=== PATIENT | male | born 1940 | race Caucasian/White ===

== ENCOUNTER 2020-07-17 08:22 | Outpatient (CLI) | payer MEDICARE, SELFPAY ==
--- NOTE | ~2020-07-17 | US_ITS ---
EXAMINATION: US abdomen complete DATE: 07/17/2020 09:24 INDICATION: Intra-abdominal and pelvic swelling. TECHNIQUE: Multiple grayscale and Doppler ultrasound images of the abdomen were obtained. COMPARISON: None FINDINGS: The pancreas is obscured by bowel gas. The liver is normal without focal lesion. There is n ormal flow in main portal vein. The gallbladder is normal in size and contains sludge. No gallstones. Gallbladder wall thickening is noted. The common duct is normal and measures 5 mm. The spleen is nor mal in size. The kidneys are normal in size. There is a 6.9 cm fusiform abdominal aortic aneurysm. Th e inferior vena cava is normal. IMPRESSION: 1. 6.9 cm fusiform abdominal aortic aneurysm. Surgical consultation is recommended. I called this res ult to Dr. Cook on 07/17/20 at 11:48 AM. 2. Gallbladder wall thickening, which may be seen with interstitial edema, chronic liver disease, or chronic cholecystitis. Reviewed, dictated and finalized at location A. IMPRESSION: 1. 6.9 cm fusiform abdominal aortic aneurysm. Surgical consultation is recommen ded. I called this result to Dr. Cook on 07/17/20 at 11:48 AM. 2. 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
== END 2020-07-17 08:23 | disposition home or self-care (01) ==
PROVIDERS: PCP Family Medicine; Visit Provider Family Medicine
DX: R19.00 Intra-abdominal and pelvic swelling, mass and lump, unspecified site (principal); I71.4 Abdominal aortic aneurysm, without rupture
CPT/HCPCS: 76700

== ENCOUNTER 2021-09-25 10:35 | Outpatient (CLI) | payer MEDICARE, SELFPAY ==
--- NOTE | ~2021-09-25 | US_ITS ---
EXAMINATION: US renal BI DATE: 09/25/2021 11:04 INDICATION: Stage III B chronic kidney disease TECHNIQUE: Multiple ultrasound grayscale images of the kidneys were obtained. COMPARISON: 07/17/2020 FINDINGS: The right kidney measures 9.3 x 3.6 x 3.8 cm. The left kidney measures 10.4 x 5.7 x 5.7 cm. The kidne ys demonstrate normal echogenicity. There is no hydronephrosis in either kidney. No stones identifie d. The bladder is normal. Small amount of perihepatic ascites. IMPRESSION: 1. Normal kidneys without hydronephrosis. 2. Small amount of perihepatic ascites. Reviewed, dictated and finalized at location B. 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
== END 2021-09-25 10:36 | disposition home or self-care (01) ==
PROVIDERS: PCP Family Medicine; Visit Provider Internal Medicine Nephrology
DX: N18.32 Chronic kidney disease, stage 3b (principal)
CPT/HCPCS: 76775

== ENCOUNTER 2021-12-16 08:48 | Outpatient (CLI) | payer MEDICARE, SELFPAY ==
--- NOTE | ~2021-12-16 | CT_ITS ---
EXAMINATION:CT diagnostic chest wo con DATE: 12/16/2021 09:05 INDICATION: Solitary pulmonary nodule. TECHNIQUE: Computed tomography (CT) of the chest was performed without intravenous contrast. Automate d exposure control and iterative reconstruction technique were employed. The dose-length product (DLP ) was 148.37 mGy-cm. COMPARISON: None. FINDINGS: There is severe emphysema. There is a 5 mm nodule in right upper lobe. There is a 6 mm nodu le in right lower lobe. There is a 6 mm nodule in right lower lobe. There is a 3 mm nodule in right l ower lobe. There is a 4 mm nodule in lingula. There is a 2 mm nodule in left lower lobe. A calcified left lower lobe nodule and calcified left hilar lymph nodes are consistent with old granulomatous dis ease. No pleural effusion. Cardiomegaly is noted. There are coronary artery calcifications. No perica rdial effusion. There is a 10 x 19 mm mediastinal lymph node, likely reactive. Partially visualized i s a stent graft in abdominal aorta. There is a small volume of perihepatic ascites. There is mild tho racic spondylosis. IMPRESSION: 1. Lung-RADS category 3: Probably benign. Further evaluation is recommended with noncontrast low-dose chest CT in 6 months. 2. Small volume of perihepatic ascites. Reviewed, dictated and finalized at location A. IMPRESSION: 1. Lung-RADS category 3: Probably benign. Further evaluation is recommended wit h noncontrast low-dose chest CT in 6 months. 2. Small volume of perihepatic ascites.
== END 2021-12-16 08:49 | disposition home or self-care (01) ==
LOC: ANHIMG 08:52
PROVIDERS: PCP Family Medicine; Visit Provider Nurse Practitioner Family
DX: R91.1 Solitary pulmonary nodule (principal); R18.8 Other ascites
CPT/HCPCS: 71250

== ENCOUNTER 2022-06-21 08:53 | Outpatient (CLI) | payer MEDICARE, SELFPAY ==
--- NOTE | ~2022-06-21 | CT_ITS ---
EXAMINATION:CT diagnostic chest wo con DATE: 06/21/2022 09:13 INDICATION: Other nonspecific abnormal finding of lung field. Lung nodule. TECHNIQUE: Computed tomography (CT) of the chest was performed without intravenous contrast. Automate d exposure control and iterative reconstruction technique were employed. The dose-length product (DLP ) was 99.73 mGy-cm. COMPARISON: Chest CT 12/16/2021 FINDINGS: There is severe emphysema. In the right middle lobe, there is a new 6 mm nodule. There is a stable 4 mm nodule in right upper lobe. There is a stable 3 mm nodule in right lower lobe. There is a stable 7 mm nodule in right lower lobe. There is a stable 6 mm nodule in right lower lobe. There is mild atelectasis in the inferior lungs. A calcified left lung nodule and calcified left hilar lymph nodes are consistent with old granulomatous disease. No pleural effusion. Cardiomegaly is noted. Ther e are coronary artery calcifications. No pericardial effusion. There is stable mild mediastinal lymph adenopathy, likely reactive. There is a small volume of ascites. There is a stent graft in abdominal aorta. There is severe cervical spondylosis and mild thoracic spondylosis. IMPRESSION: 1. New 6 mm pulmonary nodule. Noncontrast low-dose chest CT is recommended in 3 months. 2. Severe emphysema. 3. Small volume of ascites. Reviewed, dictated and finalized at location B.
== END 2022-06-21 08:54 | disposition home or self-care (01) ==
PROVIDERS: PCP Family Medicine; Visit Provider Nurse Practitioner Family
DX: R91.8 Other nonspecific abnormal finding of lung field (principal); J43.9 Emphysema, unspecified; R18.8 Other ascites
CPT/HCPCS: 71250

== ENCOUNTER 2022-09-23 07:55 | Outpatient (CLI) | payer MEDICARE, SELFPAY ==
--- NOTE | ~2022-09-23 | CT_ITS ---
CT Scan of the Chest without Contrast: Clinical Indication: Pulmonary nodules Technique: Contiguous sections were acquired throughout the chest without intravenous contrast. Dose reduction technique was used on this scan by utilizing automated exposure control and iterative recon struction technique. The dose-length product (DLP) was 105.86 mGy-cm. COMPARISON: 06/21/2022 and 12/16/2021 Findings: There is no evidence of any significant mediastinal, hilar or axillary lymphadenopathy. The mediastin al soft tissues appear normal. There is no evidence of pleural or pericardial effusion. Stable 4 mm right upper lobe pulmonary nodule (axial image 45). Stable 5 mm subpleural nodule at the right lower lobe (axial image 93). Stable 3 mm right lower lobe pulmonary nodule (axial image 85). St able 6 mm pleural-based nodular opacity at the right lower lobe posteriorly (axial image 72). Stable calcified left upper and lower lobe granulomas. Moderate emphysema noted. Images through the upper abdomen reveal no abnormalities. Impression: Stable subcentimeter pulmonary nodules, as detailed above. Consider one-year follow-up. Moderate emphysema. Reviewed, dictated and finalized at [facility]. 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 Consider one-year fo llow-up. Moderate emphysema.
== END 2022-09-23 07:56 | disposition home or self-care (01) ==
LOC: ANHIMG 07:58
PROVIDERS: PCP Family Medicine; Visit Provider Physician Assistant
DX: R91.1 Solitary pulmonary nodule (principal); J43.9 Emphysema, unspecified
CPT/HCPCS: 71250

== ENCOUNTER 2023-05-04 09:28 | Outpatient (CLI) | payer MEDICARE, SELFPAY ==
[2023-05-04 11:14] LABS: Basophils Percent Auto 0.1 % (0.2-1.2); Eosinophils Percent Auto 0.1 % (0-4.4); Hematocrit 27.6 % (42.0-52.0); Hemoglobin 9.6 g/dL (14.0-18.0); Immature Granulocyte Percent A 0.8 % (0-0.5); Lymphocytes Absolute Auto 0.53 K/mm3 (0.9-3.2); Lymphocytes Percent Auto 4.3 % (18.3-44.2); Mean Corpuscular HGB Conc 34.8 g/dl (32-36); Mean Corpuscular Hemoglobin 34.8 pg (26-34); Mean Platelet Volume 9.1 fl (7.4-10.4); Monocytes Absolute Auto 1.1 K/mm3 (0.1-0.6); Monocytes Percent Auto 8.8 % (2.6-8.5); Neutrophils Absolute Auto 10.5 K/mm3 (1.3-6.7); Neutrophils Percent Auto 85.9 % (45.5-73.1); Platelet Count Result 215 k/mm3 (150-375); Red Blood Count 2.76 M/mm3 (4.6-6.20); Red Cell Distribution Width 13.5 % (11.5-14.5); White Blood Count 12.2 K/mm3 (4.5-10.0)
[2023-05-04 11:18] LABS: Appearance Urine Clear (Clear); Bacteria Urine None Seen /hpf; Bilirubin Urine Negative (Negative); Blood Urine 2+ (Negative); Color Urine Yellow (Yellow); Glucose Urine UA Negative (Negative); Ketones Urine Negative (Negative); Leukocyte Esterase Ur Negative LEU/UL (Negative); Nitrate Urine Negative (Negative); Non Pathogenic Casts 0-2; Protein Urine Negative (Negative); Specific Grav Ur 1.011 (1.001-1.035); Squamous Epithelial Cell Urine None seen /hpf (Few); Urobilinogen Urine 0.2 mg/dL (<2.0); WBC Urine 0-5 /hpf
[2023-05-04 11:21] LABS: Add Urine Microscopic? YES
[2023-05-04 11:30] LABS: Lactic Acid Reflex 1.1 mmol/L (0.7-2.0)
[2023-05-04 11:40] LABS: NT Pro B Type Natriuretic Pept 21800 pg/mL (19.9-100)
[2023-05-04 11:43] LABS: Parathyroid Intact 47.3 pg/mL (7.5-53.5)
[2023-05-04 12:40] LABS: Alanine Aminotransferase 23 U/L (6-50); Albumin Level 3.3 g/dL (3.5-5.1); Alkaline Phosphatase 92 U/L (38-126); Anion Gap 10 mmol/L (8-16); Aspartate Amino Transferase 32 U/L (17-59); Bilirubin,Total 1.4 mg/dL (0.2-1.3); Blood Urea Nitrogen 31 mg/dL (9-20); Calcium 8.1 mg/dL (8.4-10.2); Carbon Dioxide 27 mmol/L (22-30); Chloride 85 mmol/L (98-107); Estimated Glomerular Filt Rate 48; Glucose 98 mg/dL (65-110); Magnesium 2.2 mg/dL (1.6-2.3); Potassium 3.6 mmol/L (3.4-5.0); Sodium 122 mmol/L (137-145)
== END 2023-05-04 09:29 | disposition home or self-care (01) ==
LOC: ANHGOSHLAB 09:56 → ANHLAB 10:14
PROVIDERS: PCP Family Medicine; Visit Provider Nurse Practitioner Family
DX: R41.0 Disorientation, unspecified (principal); I10 Essential (primary) hypertension
CPT/HCPCS: 36415; 80053; 81001; 83605; 83735; 83880; 83970; 84443; 85025

== ENCOUNTER 2023-05-04 14:10 | Inpatient (IN) | payer MEDICARE, SELFPAY ==
[2023-05-04] VITALS (25 sets, daily range): BP systolic 109–141; BP diastolic 56–69; PULSE 84–106; RESP 18–28; TEMP 36.7–36.9; O2SAT 94–99; BMI 25.4
--- NOTE | ~2023-05-04 | CT_ITS ---
EXAMINATION: CT brain wo con DATE: 05/05/2023 12:56 INDICATION: Confusion. TECHNIQUE: Computed tomography (CT) of the head was performed without intravenous contrast. The mA wa s adjusted according to patient size. Iterative reconstruction technique was employed. The dose-lengt h product was 605.33 mGy-cm. COMPARISON: None FINDINGS: There are scattered areas of low attenuation in the cerebral white matter. There is no intr acranial hemorrhage, acute infarction, or abnormal intracranial mass lesion. The ventricles are laura l in size. The paranasal sinuses are clear. The mastoid air cells are normal. There is cerumen in the external auditory canals. IMPRESSION: 1. Extensive nonspecific cerebral white matter disease, which likely represents chronic small vessel ischemic disease. Reviewed, dictated and finalized at location A.
--- NOTE | ~2023-05-04 | XR_ITS ---
EXAMINATION: XR chest 2V Exam Date/Time: 05/04/2023 15:11 CDT HISTORY: heart failure, WEAKNESS, CHF Comparison: 01/05/2018; CT chest 09/23/2022. RESULT: Lines, tubes, and devices: Aortic stent. Lungs and pleura: Senescent and emphysematous change. Bibasilar scar/atelectasis. Multiple calcified granulomas. Cardiomediastinal silhouette: Stable. Other: No acute osseous or upper abdominal finding. IMPRESSION: No acute cardiopulmonary process. Reviewed, dictated and finalized at location K.
--- NOTE | ~2023-05-04 | US_ITS ---
EXAMINATION: US venous doppler [facility] DATE: 05/04/2023 22:26 INDICATION: edema . TECHNIQUE: Grayscale images without and with compression and Doppler images of the bilateral lower ex tremity veins were obtained. COMPARISON: None FINDINGS: The right common femoral vein, profunda (deep) femoral vein, femoral vein, popliteal vein, peroneal v ein, posterior tibial veins, gastrocnemius vein, and greater saphenous vein are patent. 4.8 x 4.5 x 5 .4 cm circumscribed cystic subcutaneous lesion in the right groin at the junction of the common femor al vein and greater saphenous vein, with internal echoes/septations no internal or peripheral flow. The left common femoral vein, profunda (deep) femoral vein, femoral vein, popliteal vein, peroneal v ein, posterior tibial veins, gastrocnemius vein, and greater saphenous vein are patent. 3.6 x 2.3 x 3 .7 cm circumscribed, cystic, subcutaneous lesion in the left groin at the junction of the proximal an d deep femoral veins, with internal echoes/septations and no internal or peripheral flow. IMPRESSION: Patent bilateral lower extremity veins. No evidence of deep venous thrombosis. 5.4 cm right groin and 3.7 cm left groin subcutaneous cystic collections that may represent resolving hematomas. Correlate with history of recent vascular access or interventional procedures. Reviewed, dictated and finalized at location K. IMPRESSION: Patent bilateral lower extremity veins. No evidence of deep venous thrombosis. 5.4 cm right groin and 3.7 cm left groin subcutaneous cystic collections that m ay represent resolving hematomas. Correlate with history of recent vascular acc ess or interventional procedures.
--- NOTE | 2023-05-04 14:42 | ECG_ITS ---
Measurements Intervals [place] Rate: 88 P: DE: 0 QRS: -85 QRSD: 133 T: 26 QT: 395 QTc: 478 Interpretive Statements ATRIAL FIBRILLATION INTRAVENTRICULAR CONDUCTION DELAY [130+ ms QRS DURATION] NO PREVIOUS ECG AVAILABLE FOR COMPARISON Electronically Signed On 05-04-2023 15:29:16 CDT by Erlin Walker M.D.
--- NOTE | 2023-05-04 14:47 | ED.GENADULT ---
HPI - General Adult General Chief complaint: Recheck/Abnormal Lab/Rx Stated complaint: sent by PCP for evaluation of CHF Time Seen by Provider: 05/04/23 14:16 History of Present Illness HPI narrative: Patient is a 82-year-old male who presents ER for further evaluation of possible CHF. Patient has history of A-fib and is anticoagulated. He also takes Lasix at home. Over the last week he has had increasing confusion and some weakness. reports its been better over the last day. Outpatient labs showed an elevated BNP. Patient is not hypoxic at this time. He is oriented x3 but is poor historian. History obtained from . Related Data Home Medications Medication Instructions Recorded Confirmed glucosamine-chondroitin 250 mg-200 2 tablet PO ONCE 12/24/19 05/04/23 mg tablet (Osteo Bi-Flex) lisinopril 20 mg tablet 20 mg PO DAILY 12/24/19 05/04/23 multivitamin 1 tablet PO DAILY 12/24/19 05/04/23 carvedilol 6.25 mg tablet 6.25 mg PO Q12H 12/04/20 05/04/23 vit C,E,zinc,copper-jdtoa2k 250 1 cap PO DAILY 06/08/21 05/04/23 mg-lutein 5 mg-zeaxanthin 1 mg capsule (Ocuvite Adult 50 Plus) atorvastatin 20 mg tablet 20 mg PO QHS 07/13/21 05/04/23 metolazone 2.5 mg tablet 2.5 mg PO .PRN 01/11/22 05/04/23 furosemide 20 mg tablet 20 mg PO DAILY 07/19/22 05/04/23 apixaban 5 mg tablet (Eliquis) 2.5 mg PO BID 12/06/22 05/04/23 Allergies Allergy/AdvReac Type Severity Reaction Status Date / Time No Known Allergies Allergy Verified 05/04/23 08:33 Review of Systems Review of Systems: All systems reviewed & are unremarkable except as noted in HPI and below Constitutional: Constitutional: Denies chills, Reports fatigue and Denies fever(s) ENT: Denies nasal congestion and Denies sore throat Cardiovascular: Cardiovascular: Denies chest pain, Denies rapid heart rate and Denies radiating jaw, neck or arm pain Respiratory: Respiratory: Denies cough, Denies dyspnea and Denies wheezing Gastrointestinal: Gastrointestinal: Denies abdominal pain, Denies nausea and Denies vomiting [facility] Past Medical History Medical History CAD in [place] artery Chronic atrial fibrillation Chronic systolic congestive heart failure CKD (chronic kidney disease) stage 3, GFR 30-59 ml/min Dyslipidemia, goal LDL below 100 Edema of both lower legs due to peripheral venous insufficiency Essential (primary) hypertension History of cardioversion 04/2016 History of colon polyps PERRY (obstructive sleep apnea) Tonsillectomy planned Surgical History Surgical History History of AAA (abdominal aortic aneurysm) repair (~2019) History of pseudoaneurysm (~05/2022) repaired 05/31/[address] Marino at [facility] of tonsillectomy (~194) 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 Family History Family History Mother Hypertension Father Family history of cardiovascular disease Social History Social History Smoking packs per day: 1.5 Smoking cigarettes per day: 30.0 Years smoked: 15 Smoking pack-years: 22.50 Smoking status: Former smoker Second hand tobacco smoke exposure: No Smoking end date: 09/19/75 Alcohol intake: never Substance use: never Substance use type: does not use Lack of Transportation: No Lack of Food: Never True Current Housing: I Have Housing Difficulty Paying Gas/Electric Bills: No Difficulty Paying for Meds: No Currently Unemployed: No Education: High School Diploma/GED Living arrangements: with family Additional living arrangements comments: Occupation/Education: retired Gender identity (if verbalized by the patient): Male Sexual Orientation (if Verbalized by the Patient): Straight or Heterosexual Agree to blood products: Yes Exam Narrative
[2023-05-04 15:04] LABS: Alveolar/Arterial O2 Gradient 42.8 mmHg; Base Excess ABG 3.8 mEq/l (+/-2.0); Fractional Inspired Oxygen 21 %; HCO3 ABG 26.7 mEq/l (22.0-26.0); Methemoglobin ABG 0.2 %THb (0-1.5); Oxygen Content ABG 13.1 %vol (16.0-22.0); Oxygen Saturation ABG 94.9 % (95.0-100.0); Oxyhemoglobin 91.5 % THb (90.0-100.0); PCO2 ABG 34.1 mmHg (35.0-45.0); PO2 ABG 66.1 mmHg (80.0-100.0); PO2 FiO2 Ratio Arterial Blood 3.15 %; Reduced Hemoglobin 7.3 %THb (0-5.0); Total Hemoglobin 10.1 g/dL (12.0-18.0)
[2023-05-04 15:06] LABS: Site Drawn RIGHT BRACHIAL; pH ABG 7.512 (7.350-7.450)
[2023-05-04] MEDS: FUROSEMIDE INJ 40 MG/4 ML VIAL IV PUSH (17:17)
--- NOTE | 2023-05-04 17:18 | PM.IMHP ---
H&P: HPI History of Present Illness Date/Time: 05/04/23 18:00 Chief Complaint: Confusion. Narrative: This is an 82-year-old male with history of coronary artery disease, chronic atrial fibrillation, systolic and diastolic congestive heart failure, chronic kidney disease stage 3, hypertension, obstructive sleep apnea, and other comorbidities who presented to the emergency department at the direction of his primary care provider for evaluation of confusion. The patient provides the following history; his and daughter provides additional information with the patient's permission. Over the past 1 week or so he has developed confusion of which he is aware; for instance he has been going to the bathroom and forgetting to take his undergarments off. The other night he was wondering around the home in the middle of the night ?not knowing what he was doing. He has been sleeping more than usual and has been more forgetful than usual. It seems to have gotten worse in the last 5 days or so. He was seen by his primary care provider on Tuesday and he was started on empiric antibiotics for possible urinary tract infection however received a call yesterday that his culture came back negative and that he should stop taking the antibiotics. Outpatient labs were ordered today and they were significant for a WBC count of 12.2, hemoglobin 9.6, sodium 122, chloride 85, BUN 31, creatinine 1.40, proBNP [id number]. He was then directed to the emergency department with concerns for possible infection and congestive heart failure. At the time my evaluation he is resting comfortably and has no specific complaints. With further questioning his mentions that his appetite has been poor the last week though she has been trying to encourage him to drink at least 20 to 30 oz of water a day however that has a fight. He denies nausea, vomiting, and diarrhea. He has not noticed a decrease in urine output. He has chronic lower extremity edema which is no worse than usual. He is on furosemide daily and has metolazone if he does have weight gain but his weight has remained stable. No lightheadedness, dizziness, fever, chills, sweats, headache, neck ache, sinus congestion, sore throat, chest or pleuritic pain, cough, shortness of breath, orthopnea, or paroxysmal nocturnal dyspnea. He has not had any recent falls or head trauma. No focal weakness, paresthesias, vertigo, facial droop, or difficulty speaking or swallowing. Review of Systems Review of Systems: Twelve systems were reviewed and are negative except for as per HPI. [facility] Past Medical History Medical History (Updated 05/04/23 @ 22:27 by Gill Granados PA-C) Chronic atrial fibrillation Chronic kidney disease, stage 3 Chronic systolic congestive heart failure EF was 32% in April 2022. Coronary artery disease Dyslipidemia, goal LDL below 100 Edema of both lower legs due to peripheral venous insufficiency Essential (primary) hypertension History of colon polyps Obstructive sleep apnea Tonsillectomy planned Surgical History Surgical History (Updated 05/04/23 @ 22:23 by Gill Granados PA-C) History of abdominal aortic aneurysm repair (2019) History of cardioversion (04/2016) 04/2016 History of pseudoaneurysm (05/2022) repaired 05/31/[address] Marino at [facility] History of tonsillectomy (1944) Status post peripheral artery angioplasty with insertion of stent (10/2020) Left iliac artery. Family History Family History Mother Hypertension Father Family history of cardiovascular disease Social History Social History (Updated 05/04/23 @ 22:24 by Gill Granados PA-C) Social History: Surrogate medical decision maker: Hazel Vázquez, spouse. Code status: Full code. Smoking packs per day: 2 Smoking cigarettes per day: 40.0 Years smoked: 15 Smoking pack-years: 30.00 Smoking status: Former smoker Tobacco type: cigarettes Second hand
--- NOTE | 2023-05-04 18:07 | ADMGEN ---
This patient, Cesar Vázquez, was admitted to 3 [facility] Surg Room 315-01. Patient/family oriented to hospital policies and general routines including ID bracelet, bed and alarms, visiting hours, pain management, procedures, bathroom and other care routines, personal items, smoking policy, room service/diet, and visiting hours. Information on how to activate the Rapid Response Team has been discussed. Patient/Family are encouraged to report perceived risks to care and to ask questions if they do not understand what they are told or what they should do.
[2023-05-04 20:34] LABS: Anion Gap 4 mmol/L (8-16); Blood Urea Nitrogen 33 mg/dL (9-20); Calcium 8.2 mg/dL (8.4-10.2); Carbon Dioxide 29 mmol/L (22-30); Chloride 87 mmol/L (98-107); Estimated CRCL calculation 33 ml/min; Estimated Glomerular Filt Rate 45; Glucose 111 mg/dL (65-110); Potassium 3.4 mmol/L (3.4-5.0); Sodium 120 mmol/L (137-145)
[2023-05-04 23:23] LABS: Creatinine Urine 16.4 mg/dL; Urea Random Urine 147 MG/DL
[2023-05-04 23:33] LABS: Sodium Urine Random 77 meq/L
[2023-05-04] MEDS: SODIUM CHLORIDE 0.9% IV 1,000 ML 100 ML IV CONT (23:33)
[2023-05-05] VITALS (13 sets, daily range): BP systolic 122–130; BP diastolic 64–73; PULSE 64–105; RESP 16–28; TEMP 36.7–37.6; O2SAT 91–99
--- NOTE | 2023-05-05 | ECHO_ITS ---
Patient Info Name: Cesar Vázquez Age: 82 years : 1940 Gender: Male Ht: 68 in Wt: 167 lbs BSA: 1.92 m2 HR: 98 bpm BP: 130 / 73 mmHg Heart Rhythm: Atrial Fibrillation Technical Quality: Good Exam Date: 05/05/2023 2:02 PM Exam Location: [facility] Patient Status: Inpatient Admit Date: 05/04/2023 Staff Ordering Physician: Gill Granados PA-C Senior Rd Engineer: Gislea Brown RDCS Attending Provider: Tyler Gil MD Referring Physician: Darwin CRUM; Exam Type: CA echo doppler color flow Study Info Indications I50.9 - Heart failure, unspecified - AFIB Complete two-dimensional, color flow and Doppler transthoracic echocardiogram is performed. Summary 1. Complete two-dimensional, color flow and Doppler transthoracic echocardiogram is performed. 2. Left and right ventricular enlargement with biventricular systolic dysfunction/low ejection fraction. 3. Severe biatrial enlargement. 4. Aortic valve sclerosis with mild aortic regurgitation. 5. Mild mitral regurgitation. 6. Moderately elevated pulmonary artery pressure. Left Ventricle Left ventricular chamber dimension is moderately enlarged. Left ventricular systolic function is severely reduced, estimated at 20-25%. The left ventricular diastolic function is indeterminate. Right Ventricle Right ventricular chamber dimension is mildly enlarged. Right ventricular systolic function is reduced. Left Atria Left atrial chamber dimension is moderately enlarged. Right Atria Right atrial chamber dimension is severely enlarged. Aortic Valve The aortic valve is trileaflet. There is mild aortic valve sclerosis. There is mild aortic valve regurgitation. Pulmonic Valve The pulmonic valve is normal. Mitral Valve The mitral valve has normal leaflets. There is mild mitral valve regurgitation. Tricuspid Valve The tricuspid valve leaflets are normal. There is mild tricuspid valve regurgitation. Moderate pulmonary hypertension, estimated pulmonary arterial systolic pressure is 59 mmHg. Pericardium/Pleural The pericardium appears normal. Aorta The aortic root size at the sinus of Valsalva is normal. Left Ventricular Outflow Tract Name Value Normal LVOT 2D LVOT Diameter 2.1 cm LVOT Doppler LVOT Peak Gradient 4 mmHg LVOT Mean Gradient 2 mmHg LVOT VTI 16 cm LVOT VTI/AV VTI Ratio 0.7 LVOT Stroke Volume 56 ml LVOT CO 14.9 l/min LVOT CI 7.7 l/min/m2 Pulmonic Valve Name Value Normal PV Doppler PV Peak Gradient 1 mmHg Mitral Valve Name Value Normal MV Doppler --------
[2023-05-05 00:18] LABS: Influenza A QL RT-PCR Negative (Negative); Influenza B QL RT-PCR Negative (Negative); SARS-CoV-2 RNA PCR Negative (Negative)
[2023-05-05 00:57] LABS: Sodium 123 mmol/L (137-145)
[2023-05-05 06:25] LABS: Hemoglobin 9.3 g/dL (14.0-18.0); Mean Corpuscular HGB Conc 34.4 g/dl (32-36); Mean Corpuscular Hemoglobin 34.3 pg (26-34); Mean Corpuscular Volume 99.6 fl (80-100); Mean Platelet Volume 9.2 fl (7.4-10.4); Platelet Count Result 215 k/mm3 (150-375); Red Blood Count 2.71 M/mm3 (4.6-6.20); Red Cell Distribution Width 13.5 % (11.5-14.5); White Blood Count 10.6 K/mm3 (4.5-10.0)
[2023-05-05 06:45] LABS: Alanine Aminotransferase 19 U/L (6-50); Albumin Level 2.9 g/dL (3.5-5.1); Alkaline Phosphatase 81 U/L (38-126); Anion Gap 3 mmol/L (8-16); Aspartate Amino Transferase 28 U/L (17-59); Bilirubin,Total 1.1 mg/dL (0.2-1.3); Blood Urea Nitrogen 30 mg/dL (9-20); Carbon Dioxide 32 mmol/L (22-30); Chloride 88 mmol/L (98-107); Estimated CRCL calculation 33 ml/min; Estimated Glomerular Filt Rate 45; Glucose 97 mg/dL (65-110); Magnesium 2.2 mg/dL (1.6-2.3); Potassium 3.5 mmol/L (3.4-5.0); Sodium 123 mmol/L (137-145)
[2023-05-05] MEDS: APIXABAN 2.5 MG TABLET PO ×2 (09:26→17:15)
[2023-05-05] MEDS: MULTIVITAMINS THERAPEUTIC TAB (*BKC) 1 TABLET PO (09:26)
[2023-05-05] MEDS: OPTI-GEN TAB 1 TABLET PO (09:26)
[2023-05-05] MEDS: lisinopriL 20 MG TABLET PO (09:27)
[2023-05-05] MEDS: carvediloL 6.25 MG TABLET PO ×2 (09:27→20:16)
--- NOTE | 2023-05-05 11:01 | PM.IMPN ---
Progress Note: A&P Assessment and Plan (1) Confusion: Code(s): R41.0 - Disorientation, unspecified Status: Acute Assessment and Plan: Patient presents in confused state. Sodium noted to be 120 which could explain confusion. No focal weakness but will proceed with a CT of the brain. TSH was normal. Will check B12, folate. (2) Hyponatremia: Code(s): E87.1 - Hypo-osmolality and hyponatremia Status: Acute Assessment and Plan: Sodium 120 on admission. Chest x-ray was clear. He did receive Lasix IV x1 in the ED. he was started on IV fluids but this has been stopped. Ap 77 and Ucr 16 with FENa 6. Will check serial sodium levels q.6. Fluid restrict. (3) Chronic combined systolic and diastolic congestive heart failure: Code(s): I50.42 - Chronic combined systolic (congestive) and diastolic (congestive) heart failure Status: Acute Assessment and Plan: Chest x-ray was clear but his BNP was 21.8K. He does have pedal edema noted but this appears to be more chronic and unchanged. Lasix IV once on admission but now lasix held. Follow clinically. (4) Chronic kidney disease, stage 3: Code(s): N18.30 - Chronic kidney disease, stage 3 unspecified Status: Acute Assessment and Plan: Cr 1.5 on admission and with in his baseline. Follow (5) Obstructive sleep apnea: Code(s): G47.33 - Obstructive sleep apnea (adult) (pediatric) Status: Acute Assessment and Plan: NIV ordered. Patient tolerating autoPAP weill. Continue the same (6) Chronic atrial fibrillation: Code(s): I48.20 - Chronic atrial fibrillation, unspecified Status: Chronic Assessment and Plan: EKG showing AFib. Rate controlled. Continue Coreg. Contine Eliquis. Subjective Date/time seen: 05/05/23 11:01 Interval history: 82yo male with CKD, AFib, CHF, CAD and HTN here for confusion. Feeling better. No CP. Feels SOB but this is chronic and no chnage. Eating okay. No cough. No n/v. Has pedal edema and family in the room feels this is better. Exam Narrative: AF 98.1 130/73 66 18 99% Gen - NARD sititng up in chair Chest - few bibasilar crackles o/w clear CV - irregularly irregular. Tele showing AFib with occasional flutter waves Abd - Soft, NT/ND, Positive BS Ext - 1+ pedal edema Neuro - Alert and oriented x 4 (except the name of the hospital). Nonfocal exam. Psych - Nml mood and affect Skin - Warm and dry Objective Data Vital Signs Vital Signs: Vital Signs - 24 hr 05/04/23 14:19 05/04/23 14:21 05/04/23 14:30 Temperature 98.4 F Pulse Rate 103 H 106 H 101 H Respiratory Rate 20 24 H 24 H Blood Pressure 111/56 L Pulse Oximetry 97 99 Oxygen Delivery Room Air 05/04/23 14:45 05/04/23 14:46 05/04/23 15:02 Temperature Pulse Rate 102 H 101 H 91 Respiratory Rate 18 20 20 Blood Pressure 109/57 L Pulse Oximetry 99 98 97 Oxygen Delivery 05/04/23 15:43 05/04/23 15:48 05/04/23 16:12 Temperature Pulse Rate 97 94 93 Respiratory Rate 18 22 H 22 H Blood Pressure Pulse Oximetry 95 Oxygen Delivery 05/04/23 16:24 05/04/23 16:31 05/04/23 16:32 Temperature Pulse Rate 87 84 93 Respiratory Rate 18 20 18 Blood Pressure 138/69 Pulse Oximetry 95 97 94 Oxygen Delivery 05/04/23 16:45 05/04/23 16:46 05/04/23 17:03 Temperature Pulse Rate 85 86 93 Respiratory Rate 19 19 19 Blood Pressure 134/63 Pulse Oximetry 95 95 Oxygen Delivery 05/04/23 17:15 05/04/23 17:16 05/04/23 17:17 Temperature Pulse Rate 101 H 97 101 H Respiratory Rate 21 H 19 19 Blood Pressure 141/69 H Pulse Oximetry Oxygen Delivery 05/04/23 17:36 05/04/23 17:45 05/04/23 17:46 Temperature Pulse Rate 102 H 98 101 H Respiratory Rate 28 H 22 H 21 H Blood Pressure 131/66 Pulse Oximetry Oxygen Delivery 05/04/23 19:45 05/04/23 22:00 05/05/23 00:00 Temperature 98.0 F Pu
[2023-05-05 12:20] LABS: Creatine Kinase 25 U/L (55-170); Sodium 126 mmol/L (137-145)
[2023-05-05 13:31] LABS: Folic Acid > 20.0 ng/mL (2.76->20)
[2023-05-05 18:28] LABS: Sodium 118 mmol/L (137-145)
[2023-05-05 18:58] LABS: Sodium 125 mmol/L (137-145)
[2023-05-05] MEDS: ATORVASTATIN 20 MG TABLET PO (20:17)
[2023-05-06] VITALS (14 sets, daily range): BP systolic 116–132; BP diastolic 58–75; PULSE 69–107; RESP 20–22; TEMP 36.2–37.3; O2SAT 91–95
[2023-05-06 00:41] LABS: Sodium 123 mmol/L (137-145)
[2023-05-06 06:38] LABS: Basophils Percent Auto 0.3 % (0.2-1.2); Eosinophils Absolute Auto 0.1 K/mm3 (0-0.3); Eosinophils Percent Auto 0.6 % (0-4.4); Hematocrit 26.4 % (42.0-52.0); Hemoglobin 8.9 g/dL (14.0-18.0); Immature Granulocyte Absolute 0.09 K/mm3 (0.00-0.031); Immature Granulocyte Percent A 0.8 % (0-0.5); Lymphocytes Absolute Auto 0.78 K/mm3 (0.9-3.2); Lymphocytes Percent Auto 7.2 % (18.3-44.2); Mean Corpuscular HGB Conc 33.7 g/dl (32-36); Mean Corpuscular Hemoglobin 34.2 pg (26-34); Mean Corpuscular Volume 101.5 fl (80-100); Mean Platelet Volume 8.7 fl (7.4-10.4); Monocytes Absolute Auto 1.1 K/mm3 (0.1-0.6); Monocytes Percent Auto 10.4 % (2.6-8.5); Neutrophils Absolute Auto 8.8 K/mm3 (1.3-6.7); Neutrophils Percent Auto 80.7 % (45.5-73.1); Platelet Count Result 194 k/mm3 (150-375); Red Cell Distribution Width 13.6 % (11.5-14.5); White Blood Count 10.9 K/mm3 (4.5-10.0)
[2023-05-06 06:48] LABS: Albumin Level 2.6 g/dL (3.5-5.1); Anion Gap 3 mmol/L (8-16); Blood Urea Nitrogen 27 mg/dL (9-20); Calcium 7.7 mg/dL (8.4-10.2); Carbon Dioxide 30 mmol/L (22-30); Chloride 89 mmol/L (98-107); Estimated CRCL calculation 37 ml/min; Estimated Glomerular Filt Rate 53; Glucose 101 mg/dL (65-110); Magnesium 2.1 mg/dL (1.6-2.3); Phosphorus 3.4 mg/dL (2.5-4.5); Potassium 3.1 mmol/L (3.4-5.0); Sodium 122 mmol/L (137-145)
[2023-05-06] MEDS: APIXABAN 2.5 MG TABLET PO ×2 (10:02→17:43)
[2023-05-06] MEDS: MULTIVITAMINS THERAPEUTIC TAB (*BKC) 1 TABLET PO (10:03)
[2023-05-06] MEDS: OPTI-GEN TAB 1 TABLET PO (10:03)
[2023-05-06] MEDS: carvediloL 6.25 MG TABLET PO ×2 (10:03→21:05)
[2023-05-06] MEDS: lisinopriL 20 MG TABLET PO (10:04)
[2023-05-06] MEDS: SODIUM CHLORIDE 1 GM TABLET PO ×2 (10:17→17:43)
--- NOTE | 2023-05-06 12:44 | PM.IMPN ---
Progress Note: A&P Assessment and Plan (1) Confusion: Code(s): R41.0 - Disorientation, unspecified Status: Acute Assessment and Plan: Patient presents in confused state. Sodium noted to be 120 which could explain confusion. CT of the brain showing no acute process. B12, folate, TSH and Cortisol were normal. Confusion better today. Follow. (2) Hyponatremia: Code(s): E87.1 - Hypo-osmolality and hyponatremia Status: Acute Assessment and Plan: Sodium 120 on admission. Chest x-ray was clear. He did receive Lasix IV x1 in the ED. he was started on IV fluids but this has been stopped. Ap 77 and Ucr 16 with FENa 6. Will check serial sodium levels q.6. Fluid restrict. Repeat Urine studies. NaCl tablets added. He is fluid overloaded but FENa suggests intrinsic renal disease. He is known to have poor right renal flow with renal atrophy (CT Apr 2022). Continue serial Na levels. Albumin low but no cirrhosis or proteinuria. lasix once. Nephrology consult (3) Chronic combined systolic and diastolic congestive heart failure: Code(s): I50.42 - Chronic combined systolic (congestive) and diastolic (congestive) heart failure Status: Acute Assessment and Plan: Chest x-ray was clear but his BNP was 21.8K. He does have pedal/leg/flank edema noted. Lasix IV once on admission. Albumin 2.6 today but has normal baseline. Repeat lasix once. Follow clinically. (4) Chronic kidney disease, stage 3: Code(s): N18.30 - Chronic kidney disease, stage 3 unspecified Status: Acute Assessment and Plan: Cr 1.5 on admission and with in his baseline. Follow (5) Obstructive sleep apnea: Code(s): G47.33 - Obstructive sleep apnea (adult) (pediatric) Status: Acute Assessment and Plan: NIV ordered. Patient tolerating autoPAP weill. Continue the same (6) Chronic atrial fibrillation: Code(s): I48.20 - Chronic atrial fibrillation, unspecified Status: Chronic Assessment and Plan: EKG showing AFib. Rate controlled. Continue Coreg. Contine Eliquis. Plan Anemia - chronic but Hgb lower then baseline. B12/foalte okay. Possibly related to renal failure. Check iron studies. Subjective Date/time seen: 05/06/23 12:44 Interval history: 82yo male with CKD, AFib, CHF, CAD and HTN here for confusion. Feels well. No CP or SOB. No BM past 4 days. No n/v. No cough. Voiding normally. Exam Narrative: AF 99.1 116/58 84 20 95% Gen - NARD Chest - bibasilar crackles o/w clear CV - irregularly irregular. Tele showing AFib with occasional flutter waves Abd - Soft, NT/ND, Positive BS Ext - 1+ pedal edema worse posterior thighs and bilateral flanks. Neuro - Alert and oriented x 4 Psych - Nml mood and affect Skin - Warm and dry Objective Data Vital Signs Vital Signs: Vital Signs - 24 hr 05/05/23 16:01 05/05/23 14:00 05/05/23 20:16 Temperature 99.0 F Pulse Rate 105 H 105 H 68 Respiratory Rate 28 H Blood Pressure 122/66 Pulse Oximetry 93 Oxygen Delivery 05/05/23 20:02 05/05/23 22:47 05/05/23 22:00 Temperature 99.6 F Pulse Rate 97 64 102 H Respiratory Rate 22 H 20 Blood Pressure 127/64 Pulse Oximetry 93 91 Oxygen Delivery Autopap 05/06/23 00:02 05/06/23 04:02 05/06/23 06:00 Temperature 99.1 F Pulse Rate 91 88 91 Respiratory Rate 20 Blood Pressure 120/64 Pulse Oximetry 91 Oxygen Delivery 05/06/23 09:58 05/06/23 10:03 Temperature Pulse Rate 84 84 Respiratory Rate Blood Pressure 116/58 L Pulse Oximetry 95 Oxygen Delivery Intake/Output Intake/Output: Intake & Output 05/03/23 05/04/23 05/05/23 05/06/23 23:59 23:59 23:59 23:59 Intake Total 1860 250 Output Total 850 325 Balance 1010 -75 Meds/Results Medications: Active Medications Generic Name Dose Route Start Last Admin Trade Name Freq PRN Reason Stop Dose Admin Acetaminophen 650 mg 08
[2023-05-06] MEDS: FUROSEMIDE INJ 40 MG/4 ML VIAL 20 MG IV PUSH (14:27)
[2023-05-06] MEDS: POTASSIUM CHLORIDE 20 MEQ ER TABLET 40 MEQ PO (14:27)
[2023-05-06 14:34] LABS: Sodium 125 mmol/L (137-145)
--- NOTE | 2023-05-06 14:35 | P.CONNP_ITS ---
Assessment and Plan Assessment and plan (1) Hyponatremia: Code(s): E87.1 - Hypo-osmolality and hyponatremia Status: Acute Assessment and Plan: * normal sodium levels previously * continues to fluctuate since admission * risk factors for low sodium: * underlying CKD * diuretic use (PRN metolazone) * chronic heart failure * prerenal factors(?) * recent excessive free water intake * evaluation to date noted: * TSH and cortisol okay * CT of head and CXR results reviewed * urine electrolytes non-prerenal * SPEP/UPEP and serum/urine osmolality pending * salt tablets initiated today * will add low dose diuretics as well * will increase fluid restiction to 1000cc/day * follow trend of repeat sodium levels (2) Stage 3b chronic kidney disease: Code(s): N18.32 - Chronic kidney disease, stage 3b Status: Chronic Assessment and Plan: * creatinine has run ~ 1.2 - 1.8mg/dl in the last few years * due to HTN, PERRY, and chronic prerenal azotemia due to CHF and need for di uretics (based upon previous outpatient evaluation) (3) Confusion: Code(s): R41.0 - Disorientation, unspecified Status: Acute Assessment and Plan: * presumably related to fluctuating sodium levels * CT of head noted * follow mentation (4) Anemia: Code(s): D64.9 - Anemia, unspecified Status: Acute Assessment and Plan: * possibly related to underlying CKD * follow up on iron studies * follow trend of H/H (5) Chronic combined systolic and diastolic congestive heart failure: Code(s): I50.42 - Chronic combined systolic (congestive) and diastolic (congestive) heart failure Status: Chronic Assessment and Plan: * as documented * some LE edema and bibasilar crackles on exam * will restart low dose diuretics (this may help improve sodium given addition of salt tabs) * monitor volume status (6) Essential (primary) hypertension: Code(s): I10 - Essential (primary) hypertension Status: Chronic Assessment and Plan: * reasonable control * follow trend of hemodynamics I will continue the follow the patient with you while he remains hospitalized and make further recommendations as needed. Thank you for allowing me to participate in the care of this patient. History of Present Illness Reason for Consult Consult date: 05/06/23 Reason for consult: hyponatremia Chief Complaint Chief complaint: Heart Failure, Hyponatremia History of Present Illness Narrative: It is difficult to get a full and complete history from the patient as he is a poor historian so most information to him taking it from view of the electronic medical record as well as discussion with the physician/nurses involved in his care. The the patient is 82-year-old male with a past medical history as outlined below who presented to [facility] Emergency room for further evaluation of confusion. Apparently, over the last week prior to admission the patient has had issues and problems with confusion that he is well aware of. More concerning is that it seems to have progressively worsened in that time frame. He saw his primary care physician for further evaluation of these issues / problems. At that time, there was a concern that he may have a urinary tract infection so he started on empiric antibiotic therapy. However, he received a call from his primary care physician's office the day before admission indicating the urine culture was negative and stop the antibiotics. Outpa
--- NOTE | 2023-05-06 14:35 | PM.CNNEP ---
Assessment and Plan Assessment and plan (1) Hyponatremia: Code(s): E87.1 - Hypo-osmolality and hyponatremia Status: Acute Assessment and Plan: normal sodium levels previously continues to fluctuate since admission risk factors for low sodium: underlying CKD diuretic use (PRN metolazone) chronic heart failure prerenal factors(?) recent excessive free water intake evaluation to date noted: TSH and cortisol okay CT of head and CXR results reviewed urine electrolytes non-prerenal SPEP/UPEP and serum/urine osmolality pending salt tablets initiated today will add low dose diuretics as well will increase fluid restiction to 1000cc/day follow trend of repeat sodium levels (2) Stage 3b chronic kidney disease: Code(s): N18.32 - Chronic kidney disease, stage 3b Status: Chronic Assessment and Plan: creatinine has run ~ 1.2 - 1.8mg/dl in the last few years due to HTN, PERRY, and chronic prerenal azotemia due to CHF and need for diuretics (based upon previous outpatient evaluation) (3) Confusion: Code(s): R41.0 - Disorientation, unspecified Status: Acute Assessment and Plan: presumably related to fluctuating sodium levels CT of head noted follow mentation (4) Anemia: Code(s): D64.9 - Anemia, unspecified Status: Acute Assessment and Plan: possibly related to underlying CKD follow up on iron studies follow trend of H/H (5) Chronic combined systolic and diastolic congestive heart failure: Code(s): I50.42 - Chronic combined systolic (congestive) and diastolic (congestive) heart failure Status: Chronic Assessment and Plan: as documented some LE edema and bibasilar crackles on exam will restart low dose diuretics (this may help improve sodium given addition of salt tabs) monitor volume status (6) Essential (primary) hypertension: Code(s): I10 - Essential (primary) hypertension Status: Chronic Assessment and Plan: reasonable control follow trend of hemodynamics I will continue the follow the patient with you while he remains hospitalized and make further recommendations as needed. Thank you for allowing me to participate in the care of this patient. History of Present Illness Reason for Consult Consult date: 05/06/23 Reason for consult: hyponatremia Chief Complaint Chief complaint: Heart Failure, Hyponatremia History of Present Illness Narrative: It is difficult to get a full and complete history from the patient as he is a poor historian so most information to him taking it from view of the electronic medical record as well as discussion with the physician/nurses involved in his care. The the patient is 82-year-old male with a past medical history as outlined below who presented to [facility] Emergency room for further evaluation of confusion. Apparently, over the last week prior to admission the patient has had issues and problems with confusion that he is well aware of. More concerning is that it seems to have progressively worsened in that time frame. He saw his primary care physician for further evaluation of these issues / problems. At that time, there was a concern that he may have a urinary tract infection so he started on empiric antibiotic therapy. However, he received a call from his primary care physician's office the day before admission indicating the urine culture was negative and stop the antibiotics. Outpatient labs also demonstrated a mildly elevated white blood cell count, chronic anemia, renal function at baseline but with a sodium of 122. at the best of his primary care physician, given these laboratory abnormalities in conjunction with his ongoing confusion, he presented to the emergency room for further assessment. Workup and evaluation in the emergency room demonstrated the patient be hemodynamically stable and in no apparent distress. Ro
[2023-05-06 16:45] LABS: Creatinine Urine 31.8 mg/dL; Urea Random Urine 272 MG/DL
[2023-05-06 16:58] LABS: Sodium Urine Random 80 meq/L
[2023-05-06 17:27] LABS: Sodium 125 mmol/L (137-145)
[2023-05-06] MEDS: BISACODYL 10 MG SUPPOSITORY RECTAL (17:44)
[2023-05-06] MEDS: ATORVASTATIN 20 MG TABLET PO (21:06)
[2023-05-07] VITALS (10 sets, daily range): BP systolic 105–131; BP diastolic 66–78; PULSE 85–106; RESP 18–20; TEMP 36–36.8; O2SAT 91–96
[2023-05-07 01:30] LABS: Sodium 122 mmol/L (137-145)
[2023-05-07 06:11] LABS: Hematocrit 26.9 % (42.0-52.0); Hemoglobin 9.1 g/dL (14.0-18.0); Mean Corpuscular HGB Conc 33.8 g/dl (32-36); Mean Corpuscular Hemoglobin 34.3 pg (26-34); Mean Corpuscular Volume 101.5 fl (80-100); Mean Platelet Volume 8.7 fl (7.4-10.4); Platelet Count Result 210 k/mm3 (150-375); Red Blood Count 2.65 M/mm3 (4.6-6.20); Red Cell Distribution Width 13.6 % (11.5-14.5); White Blood Count 11.3 K/mm3 (4.5-10.0)
[2023-05-07 06:28] LABS: Anion Gap 4 mmol/L (8-16); Blood Urea Nitrogen 26 mg/dL (9-20); Calcium 7.8 mg/dL (8.4-10.2); Carbon Dioxide 32 mmol/L (22-30); Chloride 90 mmol/L (98-107); Estimated CRCL calculation 35 ml/min; Estimated Glomerular Filt Rate 48; Glucose 99 mg/dL (65-110); Potassium 3.7 mmol/L (3.4-5.0); Sodium 126 mmol/L (137-145)
[2023-05-07 07:18] LABS: Iron 33 ug/dL (49-181)
[2023-05-07 07:27] LABS: Percent Iron Saturation 18 % (20-50)
[2023-05-07] MEDS: SODIUM CHLORIDE 1 GM TABLET PO ×2 (09:02→16:36)
[2023-05-07] MEDS: EMPAGLIFLOZIN 10 MG TABLET PO (09:02)
[2023-05-07] MEDS: ACETAMINOPHEN 325 MG TABLET 650 MG PO (09:02)
[2023-05-07] MEDS: OPTI-GEN TAB 1 TABLET PO (09:02)
[2023-05-07] MEDS: lisinopriL 20 MG TABLET PO (09:02)
[2023-05-07] MEDS: FUROSEMIDE 10 MG TABLET PO ×2 (09:02→16:36)
[2023-05-07] MEDS: APIXABAN 2.5 MG TABLET PO ×2 (09:02→16:36)
[2023-05-07] MEDS: carvediloL 6.25 MG TABLET PO ×2 (09:03→20:33)
[2023-05-07] MEDS: MULTIVITAMINS THERAPEUTIC TAB (*BKC) 1 TABLET PO (09:03)
--- NOTE | 2023-05-07 12:03 | PM.IMPN ---
Progress Note: A&P Assessment and Plan (1) Confusion: Code(s): R41.0 - Disorientation, unspecified Status: Acute Assessment and Plan: Patient presents in confused state. Sodium noted to be 120 which could explain confusion. CT of the brain showing no acute process. B12, folate, TSH and Cortisol were normal. Confusion resolving. Follow. (2) Hyponatremia: Code(s): E87.1 - Hypo-osmolality and hyponatremia Status: Acute Assessment and Plan: Sodium 120 on admission. Chest x-ray was clear. He did receive Lasix IV x1 in the ED. he was started on IV fluids but now stopped. Ap 77 and Ucr 16 with FENa 6. Fluid restriction ordered. NaCl tablets added. He is fluid overloaded but FENa suggests intrinsic renal disease. He is known to have poor right renal flow with right renal atrophy (CT Apr 2022). Continue serial Na levels. Albumin low but no cirrhosis or proteinuria. Lasix IV once yesterday and resumed on home Lasix dose. Nephrology following and appreciate their input. (3) Chronic combined systolic and diastolic congestive heart failure: Code(s): I50.42 - Chronic combined systolic (congestive) and diastolic (congestive) heart failure Status: Chronic Assessment and Plan: Chest x-ray was clear but his BNP was 21.8K. He does have LE edema noted. Lasix IV once on admission and repeated yesterday. Albumin 2.6 yesterday but has normal baseline. Echo showing EF 20-25% with right and left ventricular enlargement with biventricular dysfunction. Also with sever biatrial enlargement and moderate pulmonary HTN. Lasix resumed. Empagliflozin added. Continue Coreg. Stop Lisinopril and change to Losartan or Entresto. Follow clinically. (4) Chronic kidney disease, stage 3: Code(s): N18.30 - Chronic kidney disease, stage 3 unspecified Status: Acute Assessment and Plan: Cr 1.5 on admission and with in his baseline. Cr remaining stable. Follow (5) Obstructive sleep apnea: Code(s): G47.33 - Obstructive sleep apnea (adult) (pediatric) Status: Acute Assessment and Plan: NIV ordered. Patient tolerating autoPAP well. Continue the same (6) Chronic atrial fibrillation: Code(s): I48.20 - Chronic atrial fibrillation, unspecified Status: Chronic Assessment and Plan: EKG showing AFib. Rate controlled. Continue Coreg. Continue Eliquis. Okay to stop tele. Plan Anemia - chronic but Hgb lower then baseline. B12/folate okay. Iron studies consistent with anemia of chronic disease. Anemia possibly related to renal failure. Follow Subjective Date/time seen: 05/07/23 12:03 Interval history: 82yo male with CKD, AFib, CHF, CAD and HTN here for confusion. Feels better. No complaints. No Cp or SOB. No issues overnight. +SÁNCHEZ. Walking with walker in room. Exam Narrative: AF 96.8 131/66 88 20 91% ra Gen - NARD sitting up in chair Chest - bibasilar crackles CV - irregularly irregular. Tele showing AFib Abd - Soft, NT/ND, Positive BS Ext - indurated 1+ pedal edema Psych - Nml mood and affect Skin - Warm and dry Objective Data Vital Signs Vital Signs: Vital Signs - 24 hr 05/06/23 14:00 05/06/23 16:00 05/06/23 17:48 Temperature 97.2 F L Pulse Rate 85 106 H Respiratory Rate 20 Blood Pressure 119/67 Pulse Oximetry 93 93 Oxygen Delivery Room Air 05/06/23 21:05 05/06/23 22:00 05/06/23 20:00 Temperature 97.8 F Pulse Rate 106 H 107 H 107 H Respiratory Rate 22 H Blood Pressure 132/75 Pulse Oximetry 91 Oxygen Delivery 05/07/23 00:00 05/07/23 04:00 05/06/23 23:05 Temperature Pulse Rate 105 H 100 69 Respiratory Rate Blood Pressure Pulse Oximetry 93 Oxygen Delivery Autopap 05/07/23 06:00 05/07/23 09:03 Temperature 96.8 F L Pulse Rate 105 H 88 Respiratory Rate 20 Blood Pressure 131/66 Pulse Oximetry 91 Oxygen Delivery Intake/Output Intake/Output:
--- NOTE | 2023-05-07 13:35 | P.PNNP_ITS ---
Progress Note: A&P Assessment and Plan (1) Hyponatremia: Code(s): E87.1 - Hypo-osmolality and hyponatremia Status: Acute Assessment and Plan: * The patient has hyponatremia. * Prior to this admission sodium level was normal. * evaluation to date noted: * TSH and cortisol okay * CT of head no acute issues. * CT of the chest in September showed a couple of small spots which are stable for a year. * CXR nothing acute or suspicious as a cause for the hyponatremia. 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 use. Mrs. Andrade tells me that he took metolazone 3 days in a row due to fluid excess. This happened so of few days before the hospitalization. * He does drink lots of fluid. * chronic heart failure * Most likely this is due to water drinking in the presence of the metolazone. * Long discussion with the patient and . He does need to take metolazone every once a while because of his heart failure. So he should restrict fluid if he is on the metolazone for more than 1 day at a time. The fluid restriction should be about 5 cups of water per day. Once the sodium is back to normal, consider holding salt tablets but might give salt tablets with each dose of metolazone if he has to go back on that in the future. * While in the hospital, he is getting salt tablets, low-dose furosemide, and fluid restiction 1000cc/day * Sodium level is coming up with this regimen. (2) Stage 3b chronic kidney disease: Code(s): N18.32 - Chronic kidney disease, stage 3b Status: Chronic Assessment and Plan: * creatinine has run ~ 1.2 - 1.8mg/dl in the last few years * due to HTN, PERRY, and chronic prerenal azotemia due to CHF and need for diuretics (based upon previous outpatient evaluation) (3) Confusion: Code(s): R41.0 - Disorientation, unspecified Status: Acute Assessment and Plan: * This is better (4) Anemia: Code(s): D64.9 - Anemia, unspecified Status: Acute Assessment and Plan: * possibly related to underlying CKD * T sat is 18 * Will give iron. * Check another CBC tomorrow (5) Chronic combined systolic and diastolic congestive heart failure: Code(s): I50.42 - Chronic combined systolic (congestive) and diastolic (congestive) heart failure Status: Chronic Assessment and Plan: * as documented * Still some signs of volume overload. (6) Essential (primary) hypertension: Code(s): I10 - Essential (primary) hypertension Status: Chronic Assessment and Plan: * Systolic 131 today. * follow trend of hemodynamics Subjective Date/time seen: 05/07/23 13:35 Interval history: The patient feels okay. Lying in hospital bed in semi-Abbott's position. No shortness of breath. is in the room. Review of Systems Cardiovascular: Cardiovascular: Reports no additional cardiovascular complaints Respiratory: Respiratory: Reports no additional respiratory complaints Gastrointestinal: Gastrointestinal: Reports no additional gastrointestinal complaints Genitourinary: Genitourinary: Reports no additional male genitourinary complaints Exam Narrative: WDWN in NAD skin no rash head ncat lungs rare crackles cor reg no rub abd BS+ nontender and soft ext no edema. Objective Data Vital
--- NOTE | 2023-05-07 13:35 | PM.PNNEP ---
Progress Note: A&P Assessment and Plan (1) Hyponatremia: Code(s): E87.1 - Hypo-osmolality and hyponatremia Status: Acute Assessment and Plan: The patient has hyponatremia. Prior to this admission sodium level was normal. evaluation to date noted: TSH and cortisol okay CT of head no acute issues. CT of the chest in September showed a couple of small spots which are stable for a year. CXR nothing acute or suspicious as a cause for the hyponatremia. urine electrolytes non-prerenal SPEP/UPEP and serum/urine osmolality pending risk factors for low sodium: underlying CKD diuretic use. Mrs. Andrade tells me that he took metolazone 3 days in a row due to fluid excess. This happened so of few days before the hospitalization. He does drink lots of fluid. chronic heart failure Most likely this is due to water drinking in the presence of the metolazone. Long discussion with the patient and . He does need to take metolazone every once a while because of his heart failure. So he should restrict fluid if he is on the metolazone for more than 1 day at a time. The fluid restriction should be about 5 cups of water per day. Once the sodium is back to normal, consider holding salt tablets but might give salt tablets with each dose of metolazone if he has to go back on that in the future. While in the hospital, he is getting salt tablets, low-dose furosemide, and fluid restiction 1000cc/day Sodium level is coming up with this regimen. (2) Stage 3b chronic kidney disease: Code(s): N18.32 - Chronic kidney disease, stage 3b Status: Chronic Assessment and Plan: creatinine has run ~ 1.2 - 1.8mg/dl in the last few years due to HTN, PERRY, and chronic prerenal azotemia due to CHF and need for diuretics (based upon previous outpatient evaluation) (3) Confusion: Code(s): R41.0 - Disorientation, unspecified Status: Acute Assessment and Plan: This is better (4) Anemia: Code(s): D64.9 - Anemia, unspecified Status: Acute Assessment and Plan: possibly related to underlying CKD T sat is 18 Will give iron. Check another CBC tomorrow (5) Chronic combined systolic and diastolic congestive heart failure: Code(s): I50.42 - Chronic combined systolic (congestive) and diastolic (congestive) heart failure Status: Chronic Assessment and Plan: as documented Still some signs of volume overload. (6) Essential (primary) hypertension: Code(s): I10 - Essential (primary) hypertension Status: Chronic Assessment and Plan: Systolic 131 today. follow trend of hemodynamics Subjective Date/time seen: 05/07/23 13:35 Interval history: The patient feels okay. Lying in hospital bed in semi-Abbott's position. No shortness of breath. is in the room. Review of Systems Cardiovascular: Cardiovascular: Reports no additional cardiovascular complaints Respiratory: Respiratory: Reports no additional respiratory complaints Gastrointestinal: Gastrointestinal: Reports no additional gastrointestinal complaints Genitourinary: Genitourinary: Reports no additional male genitourinary complaints Exam Narrative: WDWN in NAD skin no rash head ncat lungs rare crackles cor reg no rub abd BS+ nontender and soft ext no edema. Objective Data Vital Signs Vital Signs: Vital Signs - 24 hr 05/06/23 14:00 05/06/23 16:00 05/06/23 17:48 Temperature 97.2 F L Pulse Rate 85 106 H Respiratory Rate 20 Blood Pressure 119/67 Pulse Oximetry 93 93 Oxygen Delivery Room Air 05/06/23 21:05 05/06/23 22:00 05/06/23 20:00 Temperature 97.8 F Pulse Rate 106 H 107 H 107 H Respiratory Rate 22 H Blood Pressure 132/75 Pulse Oximetry 91 Oxygen Delivery 05/07/23 00:00 05/07/23 04:00 05/06/23 23:05 Temperature Pulse Rate 105 H 100 69 Respiratory Rate Blood Pressure Pulse Oximetry
[2023-05-07] MEDS: ATORVASTATIN 20 MG TABLET PO (20:33)
[2023-05-08] VITALS (7 sets, daily range): BP systolic 112–143; BP diastolic 59–81; PULSE 72–106; RESP 18–22; TEMP 36.4–36.6; O2SAT 90–94
[2023-05-08 06:34] LABS: Hematocrit 29.9 % (42.0-52.0); Mean Corpuscular HGB Conc 33.4 g/dl (32-36); Mean Corpuscular Hemoglobin 34.4 pg (26-34); Mean Corpuscular Volume 102.7 fl (80-100); Mean Platelet Volume 8.8 fl (7.4-10.4); Platelet Count Result 257 k/mm3 (150-375); Red Blood Count 2.91 M/mm3 (4.6-6.20); Red Cell Distribution Width 14.1 % (11.5-14.5); White Blood Count 12.1 K/mm3 (4.5-10.0)
[2023-05-08 06:49] LABS: Albumin Level 3.1 g/dL (3.5-5.1); Anion Gap 3 mmol/L (8-16); Blood Urea Nitrogen 28 mg/dL (9-20); Calcium 8.1 mg/dL (8.4-10.2); Carbon Dioxide 33 mmol/L (22-30); Chloride 91 mmol/L (98-107); Estimated CRCL calculation 37 ml/min; Estimated Glomerular Filt Rate 53; Glucose 108 mg/dL (65-110); Magnesium 2.2 mg/dL (1.6-2.3); Phosphorus 3.9 mg/dL (2.5-4.5); Potassium 4.3 mmol/L (3.4-5.0); Sodium 127 mmol/L (137-145)
[2023-05-08] MEDS: IRON SUCROSE COMPLEX 200 MG in SODIUM CHLORIDE 0.9% IV 50 ML 120 MG IVPB (08:38)
[2023-05-08] MEDS: FUROSEMIDE 10 MG TABLET PO ×2 (08:39→16:49)
[2023-05-08] MEDS: OPTI-GEN TAB 1 TABLET PO (08:39)
[2023-05-08] MEDS: EMPAGLIFLOZIN 10 MG TABLET PO (08:39)
[2023-05-08] MEDS: SODIUM CHLORIDE 1 GM TABLET PO ×2 (08:39→16:49)
[2023-05-08] MEDS: carvediloL 6.25 MG TABLET PO ×2 (08:40→20:54)
[2023-05-08] MEDS: APIXABAN 2.5 MG TABLET PO ×2 (08:40→16:49)
[2023-05-08] MEDS: MULTIVITAMINS THERAPEUTIC TAB (*BKC) 1 TABLET PO (08:40)
--- NOTE | 2023-05-08 12:26 | PM.IMPN ---
Progress Note: A&P Assessment and Plan (1) Confusion: Code(s): R41.0 - Disorientation, unspecified Status: Acute Assessment and Plan: Patient presents in confused state. Sodium noted to be 120 which could explain confusion. CT of the brain showing no acute process. B12, folate, TSH and Cortisol were normal. Sodium better. Confusion resolving. Follow. (2) Hyponatremia: Code(s): E87.1 - Hypo-osmolality and hyponatremia Status: Acute Assessment and Plan: Sodium 120 on admission. Chest x-ray was clear. He did receive Lasix IV x1 in the ED. he was started on IV fluids but now stopped. Ap 77 and Ucr 16 with FENa 6. Fluid restriction ordered. NaCl tablets added. He is fluid overloaded but FENa suggests intrinsic renal disease. He does have poor EF. He is known to have poor right renal flow with right renal atrophy (CT Apr 2022) as well. Continue serial Na levels. Albumin low but no cirrhosis or proteinuria. Lasix IV given once and resumed on home Lasix dose. Sodium at 127 now. Nephrology following and appreciate their input. (3) Chronic combined systolic and diastolic congestive heart failure: Code(s): I50.42 - Chronic combined systolic (congestive) and diastolic (congestive) heart failure Status: Chronic Assessment and Plan: Chest x-ray was clear but his BNP was 21.8K. He does have LE edema noted. Lasix IV once on admission and repeated once. Albumin was low but has normal baseline. Echo showing EF 20-25% with right and left ventricular enlargement with biventricular dysfunction. Also with sever biatrial enlargement and moderate pulmonary HTN. Lasix po resumed. Empagliflozin added. Continue Coreg. Lisinopril stopped with plan for 36 hours of washout before starting Losartan or Entresto. Follow clinically. (4) Chronic kidney disease, stage 3: Code(s): N18.30 - Chronic kidney disease, stage 3 unspecified Status: Acute Assessment and Plan: Cr 1.5 on admission and with in his baseline. Cr remaining stable. Follow (5) Obstructive sleep apnea: Code(s): G47.33 - Obstructive sleep apnea (adult) (pediatric) Status: Acute Assessment and Plan: NIV ordered. Patient tolerating autoPAP well. Continue the same (6) Chronic atrial fibrillation: Code(s): I48.20 - Chronic atrial fibrillation, unspecified Status: Chronic Assessment and Plan: EKG showing AFib. Rate controlled. Continue Coreg. Continue Eliquis. Plan Anemia - chronic but Hgb lower then baseline. B12/folate okay. Iron studies consistent with anemia of chronic disease. Anemia possibly related to renal failure. Follow Subjective Date/time seen: 05/08/23 12:26 Interval history: 82yo male with CKD, AFib, CHF, CAD and HTN here for confusion. No problems overnight. No chest pain or shortness of breath. No orthopnea. Denies any fever, chills, hematuria, dysuria or cough. Exam Narrative: AF 97.5 143/81 105 22 94% ra Gen - NARD sitting up in chair Chest - mild bibasilar crackles CV - irregularly irregular Abd - Soft, NT/ND, Positive BS Ext - indurated 1and dependent LE edema Psych - Nml mood and affect Skin - Warm and dry Objective Data Vital Signs Vital Signs: Vital Signs - 24 hr 05/07/23 12:46 05/07/23 14:00 05/07/23 20:33 Temperature 97.5 F L Pulse Rate 85 106 H Respiratory Rate 18 Blood Pressure 105/75 Pulse Oximetry 96 Oxygen Delivery Room Air 05/07/23 21:33 05/07/23 20:00 05/07/23 22:43 Temperature 98.3 F Pulse Rate 105 H 105 H Respiratory Rate 20 20 Blood Pressure 130/78 Pulse Oximetry 93 93 Oxygen Delivery Room Air Autopap 05/08/23 06:00 05/08/23 08:40 05/08/23 08:40 Temperature 97.5 F L Pulse Rate 106 H 105 H Respiratory Rate 22 H Blood Pressure 143/81 H Pulse Oximetry 94 Oxygen Delivery Room Air Intake/Output Intake/Output: Intake & Output 05/05/2304/19
--- NOTE | 2023-05-08 14:47 | P.PNNP_ITS ---
Progress Note: A&P Assessment and Plan (1) Hyponatremia: Code(s): E87.1 - Hypo-osmolality and hyponatremia Status: Acute Assessment and Plan: * The patient has hyponatremia. * Prior to this admission sodium level was normal. * evaluation to date noted: * TSH and cortisol okay * CT of head no acute issues. * CT of the chest in September showed a couple of small spots which are stable for a year. * CXR nothing acute or suspicious as a cause for the hyponatremia. 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 use. Mrs. Andrade tells me that he took metolazone 3 days in a row due to fluid excess. This happened so of few days before the hospitalization. * He does drink lots of fluid. * chronic heart failure * currently the patient is on Lasix plus salt tablets. * He is also on fluid restriction. * Sodium level has gradually improved. (2) Stage 3b chronic kidney disease: Code(s): N18.32 - Chronic kidney disease, stage 3b Status: Chronic Assessment and Plan: * creatinine has run ~ 1.2 - 1.8mg/dl in the last few years * due to HTN, PERRY, and chronic prerenal azotemia due to CHF and need for diuretics (based upon previous outpatient evaluation) (3) Confusion: Code(s): R41.0 - Disorientation, unspecified Status: Acute Assessment and Plan: * This is Improved (4) Anemia: Code(s): D64.9 - Anemia, unspecified Status: Acute Assessment and Plan: * possibly related to underlying CKD * T sat is 18 * getting iron sucrose * hemoglobin is up to 10 (5) Chronic combined systolic and diastolic congestive heart failure: Code(s): I50.42 - Chronic combined systolic (congestive) and diastolic (congestive) heart failure Status: Chronic Assessment and Plan: * as documented * Still some signs of volume overload. (6) Essential (primary) hypertension: Code(s): I10 - Essential (primary) hypertension Status: Chronic Assessment and Plan: * Systolic ranging from 105-143.. * Continue same management Subjective Date/time seen: 05/08/23 14:47 Interval history: The patient feels okay. sitting up in a chair. He just had physical therapy known walked. He also just had occupational therapy and did well as well. Exam Narrative: WDWN in NAD skin no rash or subcu nodules head ncat lungs fairly clear cor reg no rub or gallop abd BS+ nontender and soft ext 1+ bilateral edema. Objective Data Vital Signs Vital Signs: Vital Signs - 24 hr 05/07/23 20:33 05/07/23 21:33 05/07/23 20:00 Temperature 98.3 F Pulse Rate 106 H 105 H Respiratory Rate 20 Blood Pressure 130/78 Pulse Oximetry 93 Oxygen Delivery Room Air 05/07/23 22:43 05/08/23 06:00 05/08/23 08:40 Temperature 97.5 F L Pulse Rate 105 H 106 H 105 H Respiratory Rate 20 22 H Blood Pressure 143/81 H Pulse Oximetry 93 94 Oxygen Delivery Autopap 05/08/23 08:40 Temperature Pulse Rate Respiratory Rate Blood Pressure Pulse Oximetry Oxygen Delivery Room Air
--- NOTE | 2023-05-08 14:47 | PM.PNNEP ---
Progress Note: A&P Assessment and Plan (1) Hyponatremia: Code(s): E87.1 - Hypo-osmolality and hyponatremia Status: Acute Assessment and Plan: The patient has hyponatremia. Prior to this admission sodium level was normal. evaluation to date noted: TSH and cortisol okay CT of head no acute issues. CT of the chest in September showed a couple of small spots which are stable for a year. CXR nothing acute or suspicious as a cause for the hyponatremia. urine electrolytes non-prerenal SPEP/UPEP and serum/urine osmolality pending risk factors for low sodium: underlying CKD diuretic use. Mrs. Andrade tells me that he took metolazone 3 days in a row due to fluid excess. This happened so of few days before the hospitalization. He does drink lots of fluid. chronic heart failure currently the patient is on Lasix plus salt tablets. He is also on fluid restriction. Sodium level has gradually improved. (2) Stage 3b chronic kidney disease: Code(s): N18.32 - Chronic kidney disease, stage 3b Status: Chronic Assessment and Plan: creatinine has run ~ 1.2 - 1.8mg/dl in the last few years due to HTN, PERRY, and chronic prerenal azotemia due to CHF and need for diuretics (based upon previous outpatient evaluation) (3) Confusion: Code(s): R41.0 - Disorientation, unspecified Status: Acute Assessment and Plan: This is Improved (4) Anemia: Code(s): D64.9 - Anemia, unspecified Status: Acute Assessment and Plan: possibly related to underlying CKD T sat is 18 getting iron sucrose hemoglobin is up to 10 (5) Chronic combined systolic and diastolic congestive heart failure: Code(s): I50.42 - Chronic combined systolic (congestive) and diastolic (congestive) heart failure Status: Chronic Assessment and Plan: as documented Still some signs of volume overload. (6) Essential (primary) hypertension: Code(s): I10 - Essential (primary) hypertension Status: Chronic Assessment and Plan: Systolic ranging from 105-143.. Continue same management Subjective Date/time seen: 05/08/23 14:47 Interval history: The patient feels okay. sitting up in a chair. He just had physical therapy known walked. He also just had occupational therapy and did well as well. Exam Narrative: WDWN in NAD skin no rash or subcu nodules head ncat lungs fairly clear cor reg no rub or gallop abd BS+ nontender and soft ext 1+ bilateral edema. Objective Data Vital Signs Vital Signs: Vital Signs - 24 hr 05/07/23 20:33 05/07/23 21:33 05/07/23 20:00 Temperature 98.3 F Pulse Rate 106 H 105 H Respiratory Rate 20 Blood Pressure 130/78 Pulse Oximetry 93 Oxygen Delivery Room Air 05/07/23 22:43 05/08/23 06:00 05/08/23 08:40 Temperature 97.5 F L Pulse Rate 105 H 106 H 105 H Respiratory Rate 20 22 H Blood Pressure 143/81 H Pulse Oximetry 93 94 Oxygen Delivery Autopap 05/08/23 08:40 Temperature Pulse Rate Respiratory Rate Blood Pressure Pulse Oximetry Oxygen Delivery Room Air Intake/Output Intake/Output: Intake & Output 05/05/23 05/06/23 05/07/23 05/08/23 23:59 23:59 23:59 23:59 Intake Total 1963 631 3636 395 Output Total 850 875 375 100 Balance 1010 -445 665 295 Meds/Results Medications: Active Medications Generic Name Dose Route Start Last Admin Trade Name Freq PRN Reason Stop Dose Admin Acetaminophen 650 mg 05/04/23 22:31 05/07/23 09:02 Acetaminophen 325 Mg Tablet PO 650 mg Q6H PRN Administration Mild Pain (1-3) or Fever Hydrocodone Bitart/Acetaminophen 1 tab 05/04/23 17:11 Hydrocodone/Acetaminophen (*Crx) 5-325 Mg Tablet PO Q4H PRN Pain Rated 4-6 Apixaban 2.5 mg 05/04/23 22:40 05/08/23 08:40 Apixaban 2.5 Mg Tablet PO 2.5 mg BID NAKITA Administration Atorvastatin Calcium 20 mg 05/04/23
[2023-05-08 20:50] LABS: Osmolality, Urine 256 mOsm/kg (50-1200)
[2023-05-08] MEDS: ATORVASTATIN 20 MG TABLET PO (20:53)
[2023-05-09] VITALS (8 sets, daily range): BP systolic 110–137; BP diastolic 53–67; PULSE 80–109; RESP 17–23; TEMP 36.4–37.4; O2SAT 91–95
--- NOTE | 2023-05-09 06:06 | PC.NURSE ---
pt up to toilet voided 200 ml in hat, and some missed in and got in toilet. post void bladder scan was 48 ml no need for urban at this time. continue to monitor strict I&O due to pt receiving Lasix for fluid overload.
[2023-05-09 07:05] LABS: Hematocrit 27.1 % (42.0-52.0); Hemoglobin 8.9 g/dL (14.0-18.0); Mean Corpuscular HGB Conc 32.8 g/dl (32-36); Mean Corpuscular Hemoglobin 33.8 pg (26-34); Mean Platelet Volume 8.8 fl (7.4-10.4); Platelet Count Result 239 k/mm3 (150-375); Red Blood Count 2.63 M/mm3 (4.6-6.20); Red Cell Distribution Width 14.3 % (11.5-14.5); White Blood Count 10.3 K/mm3 (4.5-10.0)
[2023-05-09 07:14] LABS: Albumin Level 2.9 g/dL (3.5-5.1); Anion Gap 3 mmol/L (8-16); Blood Urea Nitrogen 24 mg/dL (9-20); Calcium 7.8 mg/dL (8.4-10.2); Carbon Dioxide 32 mmol/L (22-30); Chloride 94 mmol/L (98-107); Estimated CRCL calculation 37 ml/min; Estimated Glomerular Filt Rate 53; Glucose 95 mg/dL (65-110); Phosphorus 4.1 mg/dL (2.5-4.5); Potassium 3.6 mmol/L (3.4-5.0); Sodium 129 mmol/L (137-145)
[2023-05-09] MEDS: IRON SUCROSE COMPLEX 200 MG in SODIUM CHLORIDE 0.9% IV 50 ML 120 MG IVPB (08:31)
[2023-05-09] MEDS: SODIUM CHLORIDE 1 GM TABLET PO ×2 (08:34→17:22)
[2023-05-09] MEDS: OPTI-GEN TAB 1 TABLET PO (08:34)
[2023-05-09] MEDS: MULTIVITAMINS THERAPEUTIC TAB (*BKC) 1 TABLET PO (08:34)
[2023-05-09] MEDS: EMPAGLIFLOZIN 10 MG TABLET PO (08:34)
[2023-05-09] MEDS: APIXABAN 2.5 MG TABLET PO ×2 (08:34→17:22)
[2023-05-09] MEDS: FUROSEMIDE 10 MG TABLET PO ×2 (08:34→17:22)
[2023-05-09] MEDS: carvediloL 6.25 MG TABLET PO ×2 (08:34→21:22)
--- NOTE | 2023-05-09 12:16 | P.PNNP_ITS ---
Progress Note: A&P Assessment and Plan (1) Hyponatremia: Code(s): E87.1 - Hypo-osmolality and hyponatremia Status: Acute Assessment and Plan: * slow improvement noted * prior to this admission sodium level was normal range * evaluation to date noted: * TSH and cortisol okay * CT of head no acute issues * CT of the chest in September showed a couple of small spots which are stable for a year * CXR nothing acute or suspicious as a cause for the hyponatremia. 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 use (metalozone for a few days OCCUPATIONAL THERAPIST HOME BASED) * excess free fluid/water intake OCCUPATIONAL THERAPIST HOME BASED * chronic systolic heart failure * currently therapy: salt tabs, oral lasix, and fluid restriction * attempt weaning of salt tabs as an outpatient * follow trend of sodium (2) Stage 3b chronic kidney disease: Code(s): N18.32 - Chronic kidney disease, stage 3b Status: Chronic Assessment and Plan: * creatinine has run ~ 1.2 - 1.8mg/dl in the last few years * due to HTN, PERRY, and chronic prerenal azotemia due to CHF and need for diuretics (based upon previous outpatient evaluation) (3) Confusion: Code(s): R41.0 - Disorientation, unspecified Status: Acute Assessment and Plan: * improvement noted * follow mentation (4) Anemia: Code(s): D64.9 - Anemia, unspecified Status: Acute Assessment and Plan: * related to underlying CKD and iron deficiency * IV venofer while hospitalized * follow H/H (5) Chronic combined systolic and diastolic congestive heart failure: Code(s): I50.42 - Chronic combined systolic (congestive) and diastolic (congestive) heart failure Status: Chronic Assessment and Plan: * as documented by recent Echo * on diuretic therapy * plan to start Entresto (6) Essential (primary) hypertension: Code(s): I10 - Essential (primary) hypertension Status: Chronic Assessment and Plan: * reasonable control * follow trend of hemodynamics Will continue to follow. Subjective Date/time seen: 05/09/23 12:16 Interval history: Follow-up for hyponatremia and chronic kidney disease. Sodium has been slowly improving with current interventions/therapy; otherwise, seems to be doing reasonably well; no acute issues/events overnight or earlier this morning; no apparent distress. Exam Narrative: General: elderly male in NAD Heart: IRRR, normal S1 and S2; no rub Lungs: clear to auscultation; decreased at bases Abdomen: soft, nontender, nondistended, positive bowel sounds Extremities: no cyanosis or clubbing; trace - 1+ edema Skin: warm and dry Objective Data Vital Signs Vital Signs: Vital Signs Temp Pulse Resp BP Pulse Ox O2 Del Method 05/09/23 12:03 97.6 F 107 H 20 110/53 L 94 05/09/23 08:00 Room Air 05/09/23 08:34 109 H 05/09/23 06:00 98.8 F 102 H 18 117/67 91 05/08/23 23:25 72 94 Autopap 05/08/23 21:30 97.9 F 105 H 18 112/60 90 05/08/23 20:00 93 Room Air 05/08/23 20:54 106 H Intake/Output Intake/Output: Intake & Output 05/06/23 05/07/23 05/08/23 05/09/23
--- NOTE | 2023-05-09 12:16 | PM.PNNEP ---
Progress Note: A&P Assessment and Plan (1) Hyponatremia: Code(s): E87.1 - Hypo-osmolality and hyponatremia Status: Acute Assessment and Plan: slow improvement noted prior to this admission sodium level was normal range evaluation to date noted: TSH and cortisol okay CT of head no acute issues CT of the chest in September showed a couple of small spots which are stable for a year CXR nothing acute or suspicious as a cause for the hyponatremia. urine electrolytes non-prerenal SPEP/UPEP and serum/urine osmolality pending risk factors for low sodium: underlying CKD diuretic use (metalozone for a few days [employer]) excess free fluid/water intake [employer] chronic systolic heart failure currently therapy: salt tabs, oral lasix, and fluid restriction attempt weaning of salt tabs as an outpatient follow trend of sodium (2) Stage 3b chronic kidney disease: Code(s): N18.32 - Chronic kidney disease, stage 3b Status: Chronic Assessment and Plan: creatinine has run ~ 1.2 - 1.8mg/dl in the last few years due to HTN, PERRY, and chronic prerenal azotemia due to CHF and need for diuretics (based upon previous outpatient evaluation) (3) Confusion: Code(s): R41.0 - Disorientation, unspecified Status: Acute Assessment and Plan: improvement noted follow mentation (4) Anemia: Code(s): D64.9 - Anemia, unspecified Status: Acute Assessment and Plan: related to underlying CKD and iron deficiency IV venofer while hospitalized follow H/H (5) Chronic combined systolic and diastolic congestive heart failure: Code(s): I50.42 - Chronic combined systolic (congestive) and diastolic (congestive) heart failure Status: Chronic Assessment and Plan: as documented by recent Echo on diuretic therapy plan to start Entresto (6) Essential (primary) hypertension: Code(s): I10 - Essential (primary) hypertension Status: Chronic Assessment and Plan: reasonable control follow trend of hemodynamics Will continue to follow. Subjective Date/time seen: 05/09/23 12:16 Interval history: Follow-up for hyponatremia and chronic kidney disease. Sodium has been slowly improving with current interventions/therapy; otherwise, seems to be doing reasonably well; no acute issues/events overnight or earlier this morning; no apparent distress. Exam Narrative: General: elderly male in NAD Heart: IRRR, normal S1 and S2; no rub Lungs: clear to auscultation; decreased at bases Abdomen: soft, nontender, nondistended, positive bowel sounds Extremities: no cyanosis or clubbing; trace - 1+ edema Skin: warm and dry Objective Data Vital Signs Vital Signs: Vital Signs Temp Pulse Resp BP Pulse Ox O2 Del Method 05/09/23 12:03 97.6 F 107 H 20 110/53 L 94 05/09/23 08:00 Room Air 05/09/23 08:34 109 H 05/09/23 06:00 98.8 F 102 H 18 117/67 91 05/08/23 23:25 72 94 Autopap 05/08/23 21:30 97.9 F 105 H 18 112/60 90 05/08/23 20:00 93 Room Air 05/08/23 20:54 106 H Intake/Output Intake/Output: Intake & Output 05/06/23 05/07/23 05/08/23 05/09/23 23:59 23:59 23:59 23:59 Intake Total 430 1040 685 420 Output Total 875 375 200 815 Balance -445 665 485 -395 Meds/Results Medications: Active Medications Generic Name Dose Route Start Last Admin Trade Name Freq PRN Reason Stop Dose Admin Acetaminophen 650 mg 05/04/23 22:31 05/07/23 09:02 Acetaminophen 325 Mg Tablet PO 650 mg Q6H PRN Administration Mild Pain (1-3) or Fever Hydrocodone Bitart/Acetaminophen 1 tab 05/04/23 17:11 Hydrocodone/Acetaminophen (*Crx) 5-325 Mg Tablet PO Q4H PRN Pain Rated 4-6 Apixaban 2.5 mg 05/04/23 22:40 05/09/23 17:22 Apixaban 2.5 Mg Tablet PO 2.5 mg BID NAKITA Administration Atorvastatin Calcium 20 mg 05/04/23 22:40 05/08/23 20:
--- NOTE | 2023-05-09 15:53 | PM.IMPN ---
Progress Note: A&P Assessment and Plan (1) Confusion: Code(s): R41.0 - Disorientation, unspecified Status: Acute Assessment and Plan: Patient presents in confused state. Sodium noted to be 120 which could explain confusion. CT of the brain showing no acute process. B12, folate, TSH and Cortisol were normal. Sodium better. Confusion resolving. Follow. (2) Hyponatremia: Code(s): E87.1 - Hypo-osmolality and hyponatremia Status: Acute Assessment and Plan: Sodium 120 on admission. Chest x-ray was clear. He did receive Lasix IV x1 in the ED. he was started on IV fluids but now stopped. Ap 77 and Ucr 16 with FENa 6. Fluid restriction ordered. NaCl tablets added. He is fluid overloaded but FENa suggests intrinsic renal disease. He does have poor EF. He is known to have poor right renal flow with right renal atrophy (CT Apr 2022) as well. Sodium 129 today. Continue serial Na levels. Albumin low but no cirrhosis or proteinuria. Continue home Lasix dose. Nephrology following and appreciate their input. (3) Chronic combined systolic and diastolic congestive heart failure: Code(s): I50.42 - Chronic combined systolic (congestive) and diastolic (congestive) heart failure Status: Chronic Assessment and Plan: Chest x-ray was clear but his BNP was 21.8K. He does have LE edema noted. Lasix IV once on admission and repeated once. Albumin was low but has normal baseline. Echo showing EF 20-25% with right and left ventricular enlargement with biventricular dysfunction. Also with sever biatrial enlargement and moderate pulmonary HTN. Lasix po resumed. Empagliflozin added. We continued his Coreg. Lisinopril stopped; he had 36 hours of washout before starting Entresto. Follow clinically. (4) Chronic kidney disease, stage 3: Code(s): N18.30 - Chronic kidney disease, stage 3 unspecified Status: Acute Assessment and Plan: Cr 1.5 on admission and with in his baseline. Cr remaining stable. Follow (5) Obstructive sleep apnea: Code(s): G47.33 - Obstructive sleep apnea (adult) (pediatric) Status: Acute Assessment and Plan: NIV ordered. Patient tolerating autoPAP well. Continue the same (6) Chronic atrial fibrillation: Code(s): I48.20 - Chronic atrial fibrillation, unspecified Status: Chronic Assessment and Plan: EKG showing AFib. Rate controlled. Continue Coreg. Continue Eliquis. Plan Anemia - chronic but Hgb lower then baseline. B12/folate okay. Iron studies consistent with anemia of chronic disease. TSat 18% so IV iron added. Anemia possibly related to renal failure. Follow Subjective Date/time seen: 05/09/23 15:53 Interval history: 82yo male with CKD, AFib, CHF, CAD and HTN here for confusion. Slept well. No CP or SOB. Exam Narrative: AF 97.6 110/53 107 20 94% ra Gen - NARD sitting up in chair Chest - CTA bilaterally, nml RR CV - irregularly irregular Abd - Soft, NT/ND, Positive BS Ext - indurated dependent LE edema Psych - Nml mood and affect Skin - Warm and dry Objective Data Vital Signs Vital Signs: Vital Signs - 24 hr 05/08/23 20:54 05/08/23 20:00 05/08/23 21:30 Temperature 97.9 F Pulse Rate 106 H 105 H Respiratory Rate 18 Blood Pressure 112/60 Pulse Oximetry 93 90 Oxygen Delivery Room Air 05/08/23 23:25 05/09/23 06:00 05/09/23 08:34 Temperature 98.8 F Pulse Rate 72 102 H 109 H Respiratory Rate 18 Blood Pressure 117/67 Pulse Oximetry 94 91 Oxygen Delivery Autopap 05/09/23 08:00 05/09/23 13:53 Temperature 97.6 F Pulse Rate 107 H Respiratory Rate 20 Blood Pressure 110/53 L Pulse Oximetry 94 Oxygen Delivery Room Air Intake/Output Intake/Output: Intake & Output 05/06/23 05/07/23 05/08/23 05/09/23 23:59 23:59 23:59 23:59 Intake Total 430 1040 685 300 Output Total 875 375 200 815 Balance -445 130 275 -556 Meds/Results
[2023-05-09] MEDS: ATORVASTATIN 20 MG TABLET PO (21:22)
[2023-05-09] MEDS: SACUBITRIL/VALSARTAN 12-13 MG TABLET 1 TAB PO (21:22)
[2023-05-10 02:16] VITALS: PULSE 80; RESP 23; O2SAT 95
[2023-05-10 06:00] VITALS: BP 119/54; PULSE 81; RESP 16; TEMP 36.3; O2SAT 93
[2023-05-10 06:39] LABS: Albumin Level 2.7 g/dL (3.5-5.1); Anion Gap 3 mmol/L (8-16); Blood Urea Nitrogen 25 mg/dL (9-20); Calcium 7.7 mg/dL (8.4-10.2); Carbon Dioxide 32 mmol/L (22-30); Chloride 95 mmol/L (98-107); Estimated CRCL calculation 35 ml/min; Estimated Glomerular Filt Rate 48; Glucose 97 mg/dL (65-110); Potassium 3.6 mmol/L (3.4-5.0); Sodium 130 mmol/L (137-145)
[2023-05-10] MEDS: MULTIVITAMINS THERAPEUTIC TAB (*BKC) 1 TABLET PO (08:41)
[2023-05-10] MEDS: EMPAGLIFLOZIN 10 MG TABLET PO (08:41)
[2023-05-10] MEDS: carvediloL 6.25 MG TABLET PO (08:41)
[2023-05-10] MEDS: OPTI-GEN TAB 1 TABLET PO (08:42)
[2023-05-10] MEDS: APIXABAN 2.5 MG TABLET PO (08:42)
[2023-05-10] MEDS: FUROSEMIDE 10 MG TABLET PO (08:42)
[2023-05-10] MEDS: SACUBITRIL/VALSARTAN 12-13 MG TABLET 1 TAB PO (08:42)
[2023-05-10] MEDS: SODIUM CHLORIDE 1 GM TABLET PO (08:42)
--- NOTE | 2023-05-10 10:45 | PM.PNNEP ---
Progress Note: A&P Assessment and Plan (1) Hyponatremia: Code(s): E87.1 - Hypo-osmolality and hyponatremia Status: Acute Assessment and Plan: slow improvement noted prior to this admission sodium level was normal range evaluation to date noted: TSH and cortisol okay CT of head no acute issues CT of the chest in September showed a couple of small spots which are stable for a year CXR nothing acute or suspicious as a cause for the hyponatremia. 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 chronic systolic heart failure currently therapy: salt tabs, oral lasix, and fluid restriction attempt weaning of salt tabs as an outpatient follow trend of sodium (2) Stage 3b chronic kidney disease: Code(s): N18.32 - Chronic kidney disease, stage 3b Status: Chronic Assessment and Plan: creatinine has run ~ 1.2 - 1.8mg/dl in the last few years due to HTN, PERRY, and chronic prerenal azotemia due to CHF and need for diuretics (based upon previous outpatient evaluation) (3) Confusion: Code(s): R41.0 - Disorientation, unspecified Status: Acute Assessment and Plan: improvement noted follow mentation (4) Anemia: Code(s): D64.9 - Anemia, unspecified Status: Acute Assessment and Plan: related to underlying CKD and iron deficiency IV venofer while hospitalized follow H/H (5) Chronic combined systolic and diastolic congestive heart failure: Code(s): I50.42 - Chronic combined systolic (congestive) and diastolic (congestive) heart failure Status: Chronic Assessment and Plan: as documented by recent Echo on diuretic therapy started on Entresto (6) Essential (primary) hypertension: Code(s): I10 - Essential (primary) hypertension Status: Chronic Assessment and Plan: reasonable control follow trend of hemodynamics Not opposed to discharge from renal perspective if otherwise medically stable Will continue to follow. Subjective Date/time seen: 05/10/23 10:45 Interval history: Follow-up for hyponatremia and chronic kidney disease. Working with therapy at the time of my visit; no apparent distress voiced at the time of my visit; sodium continues to slowly improve with current therapy; at bedside and we discussed the situation; no issues overnight or earlier this AM. Exam Narrative: General: elderly male in NAD Heart: IRRR, normal S1 and S2; no rub Lungs: clear to auscultation; decreased at bases Abdomen: soft, nontender, nondistended, positive bowel sounds Extremities: no cyanosis or clubbing; trace - 1+ edema Skin: warm and intact Objective Data Vital Signs Vital Signs: Vital Signs Temp Pulse Resp BP Pulse Ox O2 Del Method 05/10/23 06:00 97.3 F L 81 16 119/54 L 93 05/09/23 20:00 80 23 H 95 Autopap 05/10/23 02:16 80 23 H 95 Autopap 05/09/23 22:00 99.3 F 106 H 18 137/66 92 05/09/23 23:13 95 Room Air 05/09/23 22:30 82 17 95 Autopap 05/09/23 21:22 107 H 05/09/23 13:53 97.6 F 107 H 20 110/53 L 94 Intake/Output Intake/Output: Intake & Output 05/07/23 05/08/23 05/09/23 05/10/23 23:59 23:59 23:59 23:59 Intake Total 1040 685 420 120 Output Total 375 200 815 250 Balance 662 251 -170 -662 Meds/Results Medications: Active Medications Generic Name Dose Route Start Last Admin Trade Name Freq PRN Reason Stop Dose Admin Acetaminophen 650 mg 05/04/23 22:31 05/07/23 09:02 Acetaminophen 325 Mg Tablet PO 650 mg Q6H PRN Administration Mild Pain (1-3) or Fever Hydrocodone Bitart/Acetaminophen 1 tab 05/04/23 17:11 Hydrocodone/Acetaminophen (*Crx) 5-325 Mg Tablet PO Q4H PRN Pain Rated 4-6 Apixaban 2.5 mg
--- NOTE | 2023-05-10 10:45 | P.PNNP_ITS ---
Progress Note: A&P Assessment and Plan (1) Hyponatremia: Code(s): E87.1 - Hypo-osmolality and hyponatremia Status: Acute Assessment and Plan: * slow improvement noted * prior to this admission sodium level was normal range * evaluation to date noted: * TSH and cortisol okay * CT of head no acute issues * CT of the chest in September showed a couple of small spots which are stable for a year * CXR nothing acute or suspicious as a cause for the hyponatremia. 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 * chronic systolic heart failure * currently therapy: salt tabs, oral lasix, and fluid restriction * attempt weaning of salt tabs as an outpatient * follow trend of sodium (2) Stage 3b chronic kidney disease: Code(s): N18.32 - Chronic kidney disease, stage 3b Status: Chronic Assessment and Plan: * creatinine has run ~ 1.2 - 1.8mg/dl in the last few years * due to HTN, PERRY, and chronic prerenal azotemia due to CHF and need for diuretics (based upon previous outpatient evaluation) (3) Confusion: Code(s): R41.0 - Disorientation, unspecified Status: Acute Assessment and Plan: * improvement noted * follow mentation (4) Anemia: Code(s): D64.9 - Anemia, unspecified Status: Acute Assessment and Plan: * related to underlying CKD and iron deficiency * IV venofer while hospitalized * follow H/H (5) Chronic combined systolic and diastolic congestive heart failure: Code(s): I50.42 - Chronic combined systolic (congestive) and diastolic (congestive) heart failure Status: Chronic Assessment and Plan: * as documented by recent Echo * on diuretic therapy * started on Entresto (6) Essential (primary) hypertension: Code(s): I10 - Essential (primary) hypertension Status: Chronic Assessment and Plan: * reasonable control * follow trend of hemodynamics Not opposed to discharge from renal perspective if otherwise medically stable Will continue to follow. Subjective Date/time seen: 05/10/23 10:45 Interval history: Follow-up for hyponatremia and chronic kidney disease. Working with therapy at the time of my visit; no apparent distress voiced at the time of my visit; sodium continues to slowly improve with current therapy; at bedside and we discussed the situation; no issues overnight or earlier this AM. Exam Narrative: General: elderly male in NAD Heart: IRRR, normal S1 and S2; no rub Lungs: clear to auscultation; decreased at bases Abdomen: soft, nontender, nondistended, positive bowel sounds Extremities: no cyanosis or clubbing; trace - 1+ edema Skin: warm and intact Objective Data Vital Signs Vital Signs: Vital Signs Temp Pulse Resp BP Pulse Ox O2 Del Method 05/10/23 06:00 97.3 F L 81 16 119/54 L 93 05/09/23 20:00 80 23 H 95 Autopap 05/10/23 02:16 80 23 H 95 Autopap 05/09/23 22:00 99.3 F 106 H 18 137/66 92 05/09/23 23:13 95 Room Air 05/09/23 22:30 82 17 95 Autopap 05/09/23 21:22 107 H 05/09/23 13:53 97.6 F 107 H 20 110/53 L 94
[2023-05-10] MEDS: IRON SUCROSE COMPLEX 200 MG in SODIUM CHLORIDE 0.9% IV 50 ML 120 MG IVPB (12:24)
--- NOTE | 2023-05-10 12:55 | PM.DS ---
DS: Admitting Diagnosis Discharge Date 05/10/23 Admitting Diagnosis Confusion DS: Discharge Diagnosis Discharge Diagnosis (1) Confusion: Code(s): R41.0 - Disorientation, unspecified Status: Acute (2) Hyponatremia: Code(s): E87.1 - Hypo-osmolality and hyponatremia Status: Acute (3) Chronic combined systolic and diastolic congestive heart failure: Code(s): I50.42 - Chronic combined systolic (congestive) and diastolic (congestive) heart failure Status: Chronic (4) Chronic kidney disease, stage 3: Code(s): N18.30 - Chronic kidney disease, stage 3 unspecified Status: Acute (5) Obstructive sleep apnea: Code(s): G47.33 - Obstructive sleep apnea (adult) (pediatric) Status: Acute (6) Chronic atrial fibrillation: Code(s): I48.20 - Chronic atrial fibrillation, unspecified Status: Chronic DS: Summary Hospital Course Reason for hospitalization: 82yo male with CKD, AFib, CHF, CAD and HTN here for confusion. Please see H&P for details. Hospital Course: Patient presented in a confused state.? Hyponatremia noted which could explain confusion. CT of the brain showed no acute process.? B12, folate, TSH and Cortisol were normal. Sodium improved and his confusion resolved. Sodium 120 on admission.? Chest x-ray was clear.? Lasix IV once on admission and repeated once. He was started on IV fluids but then stopped.? Ap 77 and Ucr 16 with FENa 6. Fluid restriction ordered. NaCl tablets added. His BNP was 21.8K.? He does have LE edema noted. Albumin was low but has normal baseline albumin. Echo showing EF 20-25% with right and left ventricular enlargement with biventricular dysfunction. Also with severe biatrial enlargement and moderate pulmonary HTN. We resumed his oral Lasix. Empagliflozin added. We continued his Coreg. Lisinopril stopped; he had 36 hours of washout before starting Entresto. He is known to have poor right renal flow with right renal atrophy (CT Apr 2022) as well. Sodium up to 130 today. Appreciate nephrology input. He does have Chronic kidney disease, stage 3. Cr 1.5 on admission and Cr remained within his baseline. EKG showing AFib which is chronic. Heart rate controlled. We continued Coreg and Eliquis. Noted to be anemic felt to be chronic but Hgb lower then baseline. B12/folate okay. Iron studies consistent with anemia of chronic disease. TSat 18% so IV iron added. Anemia possibly related to renal failure. Family in the room and state patient ambulating 200ft. Patient overall did well and was able to be discharged home on 05/10/23. Status at Discharge Cognitive/behavioral status at discharge: Stable Time Spent with Patient Time attestation: Total time spent providing and/or coordinating discharge services: 35 minutes Exam Narrative: AF 97.3 119/54 81 16 93% ra Gen - NARD sitting up in chair Chest - CTA bilaterally, nml RR CV - irregularly irregular Abd - Soft, NT/ND, Positive BS Ext - indurated dependent LE edema Psych - Nml mood and affect Skin - Warm and dry DS: Data Data Completed and Pending Labs on day of discharge: Labs from last 24 hours 05/10/23 05:54 Sodium 130 L Potassium 3.6 Chloride 95 L Carbon Dioxide 32 H Anion Gap 3 L BUN 25 H Creatinine 1.40 H Estim Creat Clear Calc 35 Estimated GFR 48 L Glucose 97 Calcium 7.7 L Phosphorus 4.0 Albumin 2.7 L Discharge Plan Discharge Attending physician on discharge: Tyler Gil Consulting providers: Maria D Nguyen Discharging Clinician: Tyler Gil Anticipated Discharge Date/Time: 05/10/23 13:03 Patient Disposition: Home, Self-Care Activity: as tolerated Diet: heart healthy Discharge Instructions: Heart healthy diet. Continue to monitor fluid intake and minimize fluid intake to <1500mL per day. Check blood pressure 1 to 2 times a day. Record and bring into your doctor for review. Call your doctor
[2023-05-10 14:00] VITALS: BP 123/62; PULSE 82; RESP 18; TEMP 37.6; O2SAT 96
[2023-05-11 12:35] LABS: Albumin 2.4 g/dL (3.8-4.8); Alpha 1 Globulin 0.5 g/dL (0.2-0.3); Alpha 2 Globulin 0.7 g/dL (0.5-0.9); Beta 1 Globulin 0.4 g/dL (0.4-0.6); Gamma Globulin 1.2 g/dL (0.8-1.7); Protein, Total 5.8 g/dL (6.1-8.1)
[2023-05-11 21:41] LABS: Kappa\\Lambda Light Chains 0.84 (0.26-1.65); Lambda Light Chain 95.4 mg/L (5.7-26.3)
[2023-05-13 00:37] LABS: Creatinine, Random Urine 89 mg/dL (20-320); Total Protein/Creatinine Ratio 449 mg/g creat (25-148)
--- NOTE | 2023-05-18 09:38 | PC.NURSE ---
K/L light chain WNL at 0.84 SPEP-suggests acute inflammation UPEP- no M spike Dr. Gil aware.
== END 2023-05-10 14:40 | disposition home or self-care (01) | DRG 641 ==
LOC: ANHED 17:28 → ANH3MEDSUR 17:54
PROVIDERS: Internal Medicine Nephrology; Physician Assistant; Admitting Provider Internal Medicine; Emergency Provider Emergency Medicine; PCP Family Medicine; Visit Provider Internal Medicine
DX: E87.1 Hypo-osmolality and hyponatremia (principal); I48.20 Chronic atrial fibrillation, unspecified; I13.0 Hypertensive heart and chronic kidney disease with heart failure and stage 1 through stage 4 chronic kidney disease, or unspecified chronic kidney disease; I50.42 Chronic combined systolic (congestive) and diastolic (congestive) heart failure; N18.32 Chronic kidney disease, stage 3b; D50.9 Iron deficiency anemia, unspecified; G47.33 Obstructive sleep apnea (adult) (pediatric); R41.0 Disorientation, unspecified; I25.10 Atherosclerotic heart disease of native coronary artery without angina pectoris; D63.1 Anemia in chronic kidney disease; E78.5 Hyperlipidemia, unspecified; Z20.822 Contact with and (suspected) exposure to COVID-19; Z95.820 Peripheral vascular angioplasty status with implants and grafts; Z87.891 Personal history of nicotine dependence; Z79.01 Long term (current) use of anticoagulants
CPT/HCPCS: 36415; 36600; 70450; 71046; 80048; 80053; 80069; 81001; 82375; 82533; 82550; 82570; 82607; 82728; 82746; 82805; 83050; 83540; 83550; 83605; 83735; 83880; 83883; 83930; 83935; 83970; 84155; 84156; 84165; 84166; 84295; 84300; 84443; 84540; 85025; 85027; 87636; 93005; 93306; 93970; 96361; 96374; 96376; 97110; 97116; 97161; 97165; 97530; 97535; 99285; A9270; G0378; J1756; J1940; J7030

== ENCOUNTER 2023-05-16 10:57 | Outpatient (CLI) | payer MEDICARE, SELFPAY ==
[2023-05-16 12:32] LABS: Anion Gap 8 mmol/L (8-16); Blood Urea Nitrogen 30 mg/dL (9-20); Calcium 8.2 mg/dL (8.4-10.2); Carbon Dioxide 28 mmol/L (22-30); Chloride 103 mmol/L (98-107); Estimated Glomerular Filt Rate 45; Glucose 104 mg/dL (65-110); Potassium 3.5 mmol/L (3.4-5.0); Sodium 139 mmol/L (137-145)
== END 2023-05-16 10:58 | disposition home or self-care (01) ==
PROVIDERS: PCP Family Medicine; Visit Provider Internal Medicine
DX: E87.1 Hypo-osmolality and hyponatremia (principal)
CPT/HCPCS: 36415; 80048

== ENCOUNTER 2023-05-24 10:23 | Outpatient (CLI) | payer MEDICARE, SELFPAY ==
[2023-05-24 19:29] LABS: Alanine Aminotransferase 20 U/L (6-50); Albumin Level 3.1 g/dL (3.5-5.1); Alkaline Phosphatase 120 U/L (38-126); Anion Gap 12 mmol/L (8-16); Aspartate Amino Transferase 40 U/L (17-59); Bilirubin,Total 1.2 mg/dL (0.2-1.3); Blood Urea Nitrogen 27 mg/dL (9-20); Calcium 8.2 mg/dL (8.4-10.2); Carbon Dioxide 23 mmol/L (22-30); Chloride 110 mmol/L (98-107); Estimated Glomerular Filt Rate 48; Glucose 125 mg/dL (65-110); Potassium 3.7 mmol/L (3.4-5.0); Sodium 145 mmol/L (137-145)
== END 2023-05-24 10:24 | disposition home or self-care (01) ==
PROVIDERS: PCP Family Medicine; Visit Provider Family Medicine
DX: E87.1 Hypo-osmolality and hyponatremia (principal)
CPT/HCPCS: 36415; 80053

== ENCOUNTER 2023-06-03 10:49 | Outpatient (CLI) | payer MEDICARE, SELFPAY ==
[2023-06-03 11:31] LABS: Albumin Level 3.1 g/dL (3.5-5.1); Anion Gap 8 mmol/L (8-16); Blood Urea Nitrogen 23 mg/dL (9-20); Calcium 7.9 mg/dL (8.4-10.2); Carbon Dioxide 23 mmol/L (22-30); Chloride 113 mmol/L (98-107); Estimated Glomerular Filt Rate 53; Glucose 111 mg/dL (65-110); Phosphorus 3.6 mg/dL (2.5-4.5); Potassium 3.4 mmol/L (3.4-5.0); Sodium 144 mmol/L (137-145)
== END 2023-06-03 10:50 | disposition home or self-care (01) ==
PROVIDERS: PCP Family Medicine; Visit Provider Internal Medicine Nephrology
DX: E87.1 Hypo-osmolality and hyponatremia (principal); N18.31 Chronic kidney disease, stage 3a
CPT/HCPCS: 36415; 80069

== ENCOUNTER 2023-06-21 16:00 | Outpatient (CLI) | payer MEDICARE, SELFPAY ==
[2023-06-21 18:59] LABS: Basophils Percent Auto 0.4 % (0.2-1.2); Eosinophils Absolute Auto 0.1 K/mm3 (0-0.3); Eosinophils Percent Auto 0.7 % (0-4.4); Hematocrit 26.5 % (42.0-52.0); Hemoglobin 7.8 g/dL (14.0-18.0); Immature Granulocyte Absolute 0.09 K/mm3 (0.00-0.031); Lymphocytes Absolute Auto 1.58 K/mm3 (0.9-3.2); Lymphocytes Percent Auto 17.8 % (18.3-44.2); Mean Corpuscular HGB Conc 29.4 g/dl (32-36); Mean Corpuscular Hemoglobin 33.9 pg (26-34); Mean Corpuscular Volume 115.2 fl (80-100); Mean Platelet Volume 9.9 fl (7.4-10.4); Monocytes Absolute Auto 0.7 K/mm3 (0.1-0.6); Monocytes Percent Auto 7.3 % (2.6-8.5); Neutrophils Absolute Auto 6.5 K/mm3 (1.3-6.7); Neutrophils Percent Auto 72.8 % (45.5-73.1); Platelet Count Result 226 k/mm3 (150-375); Vitamin D 25 Hydroxy 91.1 ng/mL; White Blood Count 8.9 K/mm3 (4.5-10.0)
[2023-06-21 19:11] LABS: Alanine Aminotransferase 19 U/L (6-50); Albumin Level 3.1 g/dL (3.5-5.1); Alkaline Phosphatase 115 U/L (38-126); Anion Gap 7 mmol/L (8-16); Aspartate Amino Transferase 27 U/L (17-59); Bilirubin,Total 0.9 mg/dL (0.2-1.3); Blood Urea Nitrogen 23 mg/dL (9-20); Calcium 8.2 mg/dL (8.4-10.2); Carbon Dioxide 28 mmol/L (22-30); Chloride 109 mmol/L (98-107); Cholesterol 75 mg/dL (0-200); Estimated Glomerular Filt Rate 48; Glucose 95 mg/dL (65-110); HDL Direct 30 mg/dL; Potassium 3.5 mmol/L (3.4-5.0); Sodium 144 mmol/L (137-145); Triglycerides 55 mg/dL (<150)
[2023-06-21 19:14] LABS: Iron 53 ug/dL (49-181)
[2023-06-21 19:15] LABS: Percent Iron Saturation 33 % (20-50)
[2023-06-21 19:22] LABS: LDL Cholesterol Direct 39 mg/dL
[2023-06-21 19:42] LABS: Platelet Estimate Adequate (Adequate); Polychromasia 1+ (NORMAL)
[2023-06-21 19:43] LABS: Anisocytosis 1+ (NORMAL); Hypochromasia 1+ (NORMAL); Schistocytes Rare (NORMAL)
[2023-06-21 20:08] LABS: Hemoglobin A1C 4.4 % (<5.7)
[2023-06-21 20:28] LABS: Folic Acid > 20.0 ng/mL (2.76->20)
[2023-06-22 13:38] LABS: CRP 7.5 mg/dL (<1.0)
[2023-06-22 13:39] LABS: Erythrocyte Sedimentation Rate > 140 mm/hr (0-20)
[2023-06-22 14:00] LABS: Prostate Specific Antigen 1.7 ng/mL (< OR = 4.0)
== END 2023-06-21 16:01 | disposition home or self-care (01) ==
LOC: ANHGOSHLAB 16:08
PROVIDERS: PCP Family Medicine; Visit Provider Family Medicine
DX: R73.9 Hyperglycemia, unspecified (principal); D64.9 Anemia, unspecified; E55.9 Vitamin D deficiency, unspecified; Z00.00 Encounter for general adult medical examination without abnormal findings; I10 Essential (primary) hypertension; E78.5 Hyperlipidemia, unspecified; I48.20 Chronic atrial fibrillation, unspecified; N40.0 Benign prostatic hyperplasia without lower urinary tract symptoms; Z12.5 Encounter for screening for malignant neoplasm of prostate; Q45.3 Other congenital malformations of pancreas and pancreatic duct; R41.0 Disorientation, unspecified
CPT/HCPCS: 36415; 80053; 80061; 82306; 82607; 82728; 82746; 83036; 83540; 83550; 84153; 84443; 85025; 85652; 86140; G0103

== ENCOUNTER 2023-06-24 16:11 | Emergency (ER) | payer MEDICARE, SELFPAY ==
[2023-06-24] VITALS (30 sets, daily range): BP systolic 113–134; BP diastolic 52–84; PULSE 76–102; RESP 13–35; TEMP 34.7–36.8; O2SAT 91–100
--- NOTE | ~2023-06-24 | CT_ITS ---
EXAMINATION: CTA abdomen pelvis DATE: 06/24/2023 20:09 INDICATION: Abdominal aortic aneurysm. Lumps in the inguinal canals. TECHNIQUE: Computed tomographic angiography (CTA) of the abdomen and pelvis was performed with 100 mL Omnipaque-350 intravenous contrast. Automated exposure control and iterative reconstruction techniqu e were employed. The dose-length product was 544.82 mGy-cm. Maximum intensity projection 3D-reconstru ctions of the aorta and other arteries were constructed by the technologist on a separate workstation . COMPARISON: Chest CT 09/23/2022 FINDINGS: The visualized portions of the lung bases demonstrate emphysema and mild atelectasis. There are multiple chronic pulmonary nodules measuring up to 5 mm, likely benign. There are trace pleural effusions. There is biatrial enlargement of the heart. No pericardial effusion. The liver and spleen are normal. There are gallstones in the gallbladder, which is normal in size. The adrenal glands are normal. There is mild atrophy of right kidney. Left kidney is normal. There is a 5.7 x 5.2 cm cystic mass superficial to right common femoral artery. There is a 3.4 cm x 3.0 cm cystic mass superficial t o left common femoral artery. There is diverticulosis of the colon without evidence of diverticulitis . There are no dilated loops of bowel. There is a 7.9 cm fusiform infrarenal aortic aneurysm with cinthya nt graft. There is contrast around the proximal margin of the stent where the aneurysm measures 4.1 c m. 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 There are collateral arteries to right ki dney. There is moderate stenosis of celiac axis. There is total occlusion of inferior mesenteric laejandro ry. There is a small volume of ascites. There are no pathologically enlarged lymph nodes. There is a comminuted fracture of greater trochanter of proximal left femur. There is moderate lumbar spondylosi s. There is a mild chronic anterior wedging of L1 vertebral body. IMPRESSION: 1. 7.9 cm fusiform infrarenal aortic aneurysm with stent graft with proximal type 1 endoleak. 2. Cystic masses superficial to the bilateral common femoral arteries, likely subacute hematomas from arterial interventions. 3. Comminuted fracture of greater trochanter of proximal left femur, which may be subacute. 4. Small volume of ascites. Reviewed, dictated and finalized at location E. IMPRESSION: 1. 7.9 cm fusiform infrarenal aortic aneurysm with stent graft with proximal ty pe 1 endoleak. 2. Cystic masses superficial to the bilateral common femoral arteries, likely s ubacute hematomas from arterial interventions. 3. Comminuted fracture of greater trochanter of proximal left femur, which may be subacute. 4. Small volume of ascites.
--- NOTE | ~2023-06-24 | CT_ITS ---
EXAMINATION: CT brain wo con DATE: 06/24/2023 17:49 INDICATION: Altered mental status. TECHNIQUE: Computed tomography (CT) of the head was performed without intravenous contrast. The mA wa s adjusted according to patient size. Iterative reconstruction technique was employed. The dose-lengt h product was 605.33 mGy-cm. COMPARISON: Head CT 05/05/23 FINDINGS: There are scattered areas of low attenuation in the cerebral white matter. There is no intr acranial hemorrhage, acute infarction, or abnormal intracranial mass lesion. The ventricles are laura l in size. There are likely changes of ocular lens replacement surgeries. There is mild mucosal thick ening in the ethmoid sinuses. The mastoid air cells are normal. IMPRESSION: 1. Stable extensive nonspecific cerebral white matter disease, which likely represents chronic small vessel ischemic disease. Reviewed, dictated and finalized at location E. IMPRESSION: 1. Stable extensive nonspecific cerebral white matter disease, which likely rep resents chronic small vessel ischemic disease.
--- NOTE | ~2023-06-24 | XR_ITS ---
EXAMINATION: XR chest 1V portable DATE: 06/24/2023 17:10 INDICATION: Dysphagia. Congestive heart failure. TECHNIQUE: A single frontal view of the chest was obtained. COMPARISON: Chest 2 views 05/04/2023, chest CT/02/08 FINDINGS: A calcified left lung nodule is consistent with old granulomatous disease. There are lucenc ies and chronic interstitial opacities in the lungs, consistent with emphysema. No pleural effusion o r pneumothorax. Cardiomegaly is noted. IMPRESSION: 1. Emphysema. 2. Cardiomegaly. Reviewed, dictated and finalized at location E.
--- NOTE | 2023-06-24 16:49 | ECG_ITS ---
Measurements Intervals [place] Rate: 80 P: MS: 0 QRS: -73 QRSD: 110 T: 23 QT: 389 QTc: 449 Interpretive Statements ATRIAL FIBRILLATION MARKED LEFT AXIS DEVIATION [QRS AXIS < -30] ANTEROSEPTAL MYOCARDIAL INFARCTION , PROBABLY OLD [40+ ms Q WAVE IN V1-V4] ABNORMAL EKG COMPARED TO ECG 05/04/2023 15:07:37 LEFT-AXIS DEVIATION NOW PRESENT MYOCARDIAL INFARCT FINDING NOW PRESENT Electronically Signed On 06-25-2023 8:26:50 CDT by Lyndon Johnson M.D.
[2023-06-24] MEDS: ALBUTEROL SULFATE NEB 2.5 MG/3 ML INH INHALATION (17:07)
[2023-06-24] MEDS: IPRATROPIUM BR 0.02% INH SOLN 0.5 MG/2.5 ML VIAL INHALATION (17:07)
--- NOTE | 2023-06-24 17:13 | ED.SOB ---
HPI - SOB/Dyspnea General Chief Complaint: Shortness of Breath/Dyspnea <Radhika Mahoney PA-C - Last Filed: 06/24/23 20:20> Stated Complaint: sob <Radhika Mahoney PA-C - Last Filed: 06/24/23 20:20> Time Seen by Provider: 06/24/23 16:24 <Radhika Mahoney PA-C - Last Filed: 06/24/23 20:20> History of Present Illness HPI Narrative: 82-year-old male with a history of CAD, CHF, stage III CKD, hypertension, dyslipidemia, chronic A-fib anticoagulated with Eliquis, and PERRY reports for evaluation from his neurology appointment with Dr. Carter for dyspnea. Patient presents with his daughter and at bedside who assist with history. Patient was being seen at Dr. Carter's office for increased confusion for the past 6 weeks. While there, Dr. Carter reported that she was concerned the patient was jaundiced and was having difficulty breathing. The patient is stating that he does not feel short of breath, however does appear to have labored breathing. Per the family, the patient normally becomes short of breath when he becomes agitated, excited or nervous. The family does not believe the patient looks yellow when compared to his baseline. Patient has bilateral lower extremity edema which she states is unchanged from baseline. Patient is currently A&O x2 and confused. Family states he has been more confused the past few weeks. He lives at home with his and has a nurse come to his house once a week. He normally ambulates with a walker. Family states the patient has been raising his extremities while at rest intermittently since the onset of confusion. He is currently anticoagulated with Eliquis and taking 20 mg of Lasix daily, reports he has not missed any doses. He denies chest pain, cough, congestion, fever, abdominal pain, syncope, nausea, vomiting, diarrhea, headache, neck pain, dysuria, hematuria, urinary frequency or urgency, back pain, vision changes, focal numbness or weakness. Family does report the patient is incontinent of urine and stool since the onset of confusion. Per the patient's chart, the patient was admitted to the hospitalist service on 05/04 for CHF exacerbation, hyponatremia of [address] Carter notes in today's visit that she would like a brain MRI with and without contrast for further evaluation given the patient has not had MRI yet for his encephalopathy. <Radhika Mahoney PA-C - Last Filed: 06/24/23 20:20> Related Data Home Medications: Home Medications Medication Instructions Recorded Confirmed glucosamine-chondroitin 250 mg-200 2 tablet PO ONCE 12/24/19 06/21/23 mg tablet (Osteo Bi-Flex) multivitamin 1 tablet PO DAILY 12/24/19 06/21/23 vit C,E,zinc,copper-[id number] 250 1 cap PO DAILY 06/08/21 06/21/23 mg-lutein 5 mg-zeaxanthin 1 mg capsule (Ocuvite Adult 50 Plus) atorvastatin 20 mg tablet 20 mg PO QHS 07/13/21 06/21/23 furosemide 20 mg tablet 20 mg PO DAILY 07/19/22 06/21/23 apixaban 5 mg tablet (Eliquis) 2.5 mg PO BID 12/06/22 06/21/23 carvedilol 6.25 mg tablet 12.5 mg PO Q12H 06/21/23 06/21/23 <Radhika Mahoney PA-C - Last Filed: 06/24/23 20:20> Allergies/Adverse Reactions: Allergies Allergy/AdvReac Type Severity Reaction Status Date / Time No Known Allergies Allergy Verified 06/24/23 15:21 <Radhika Mahoney PA-C - Last Filed: 06/24/23 20:20> Review of Systems Review of Systems: CONSTITUTIONAL: Denies fever, chills EYES: Denies visual changes, redness, or discharge. ENT: Denies rhinorrhea, congestion, sore throat, or otalgia. CARDIOVASCULAR: See HPI RESPIRATORY: See HPI GASTROINTESTINAL: Denies abdominal pain, nausea, vomiting, or diarrhea. GENITOURINARY: Denies dysuria or hematuria. SKIN: Denies rash or itching. MUSCULOSKELETAL: Denies back pain, joint pain, or myalgia. NEUROLOGIC: Denies headache, numbness, dizziness, or weakness. PSYCHIATRIC: Denies anxiety or depression. <Radhika Mahoney PA-C - Last Filed: 06/24/23 20:20> PMFSH
[2023-06-24 17:46] LABS: Basophils Percent Auto 0.5 % (0.2-1.2); Eosinophils Absolute Auto 0.1 K/mm3 (0-0.3); Eosinophils Percent Auto 0.8 % (0-4.4); Hematocrit 23.9 % (42.0-52.0); Immature Granulocyte Absolute 0.04 K/mm3 (0.00-0.031); Immature Granulocyte Percent A 0.5 % (0-0.5); Lymphocytes Percent Auto 14.4 % (18.3-44.2); Mean Corpuscular HGB Conc 28.9 g/dl (32-36); Mean Corpuscular Hemoglobin 33.5 pg (26-34); Mean Platelet Volume 9.6 fl (7.4-10.4); Monocytes Absolute Auto 0.5 K/mm3 (0.1-0.6); Monocytes Percent Auto 6.5 % (2.6-8.5); Neutrophils Absolute Auto 6.5 K/mm3 (1.3-6.7); Neutrophils Percent Auto 77.3 % (45.5-73.1); Platelet Count Result 214 k/mm3 (150-375); Red Blood Count 2.06 M/mm3 (4.6-6.20); Red Cell Distribution Width 18.6 % (11.5-14.5); White Blood Count 8.4 K/mm3 (4.5-10.0)
[2023-06-24 18:04] LABS: INR 1.7; Prothrombin Time 21.4 Seconds (11.1-14.7)
[2023-06-24 18:05] LABS: Partial Thromboplastin Time 51.4 SECONDS (22.3-36.8)
[2023-06-24 18:09] LABS: Hemoglobin 6.9 g/dL (14.0-18.0)
[2023-06-24 18:10] LABS: Platelet Estimate Adequate (Adequate)
[2023-06-24 18:11] LABS: Hypochromasia 1+ (NORMAL); Schistocytes None Seen (NORMAL)
[2023-06-24 18:12] LABS: Anisocytosis 3+ (NORMAL)
[2023-06-24 18:14] LABS: Alanine Aminotransferase 18 U/L (6-50); Albumin Level 2.9 g/dL (3.5-5.1); Alkaline Phosphatase 121 U/L (38-126); Anion Gap 8 mmol/L (8-16); Aspartate Amino Transferase 28 U/L (17-59); Bilirubin,Total 0.8 mg/dL (0.2-1.3); Blood Urea Nitrogen 23 mg/dL (9-20); Calcium 7.7 mg/dL (8.4-10.2); Carbon Dioxide 26 mmol/L (22-30); Chloride 108 mmol/L (98-107); Estimated CRCL calculation 34 ml/min; Estimated Glomerular Filt Rate 53; Glucose 121 mg/dL (65-110); Magnesium 2.4 mg/dL (1.6-2.3); Potassium 3.2 mmol/L (3.4-5.0); Sodium 142 mmol/L (137-145)
[2023-06-24 18:15] LABS: Acetaminophen < 10 ug/mL (10-30); Ethanol < 10 mg/dL (<10); Salicylate < 1.0 mg/dL (2-20)
[2023-06-24 18:23] LABS: Influenza A QL RT-PCR Negative (Negative); Influenza B QL RT-PCR Negative (Negative); SARS-CoV-2 RNA PCR Negative (Negative)
[2023-06-24 18:26] LABS: NT Pro B Type Natriuretic Pept 4230 pg/mL (19.9-100); Troponin I 0.019 ng/mL (0.000-0.034)
[2023-06-24] MEDS: FUROSEMIDE INJ 40 MG/4 ML VIAL IV PUSH (18:47)
[2023-06-24] MEDS: KCL 20 MEQ/SW 100 ML 100 ML 50 MEQ IVPB (18:49)
--- NOTE | 2023-06-24 19:11 | PC.NURSE ---
Assumed care of pt. Report from SOPHIE Antunez. Pt laying per cart, attempting to urinate with tech at bedside. VSS at this time. Will cont to monitor.
[2023-06-24 19:40] LABS: Appearance Urine Clear (Clear); Bilirubin Urine Negative (Negative); Blood Urine Negative (Negative); Color Urine Yellow (Yellow); Glucose Urine UA 1+ mg/dL (Negative); Ketones Urine Negative (Negative); Leukocyte Esterase Ur Negative LEU/UL (Negative); Nitrate Urine Negative (Negative); Protein Urine Negative (Negative); Specific Grav Ur 1.008 (1.001-1.035); Urobilinogen Urine 0.2 mg/dL (<2.0)
[2023-06-24 19:51] LABS: Add Urine Microscopic? NO
[2023-06-24 20:01] LABS: Amphetamine Screen Urine Negative (Negative); Barbiturate Screen Urine Negative (Negative); Benzodiazepines Screen Urine Negative (Negative); Cannabinoid Screen Urine Negative (Negative); Cocaine Screen Urine Negative (Negative); Methadone Screen Urine Negative (Negative); Opiate Screen Urine Negative (Negative); Phencyclidine Screen Urine Negative (Negative)
[2023-06-24 21:47] LABS: Troponin I 0.024 ng/mL (0.000-0.034)
--- NOTE | 2023-06-24 23:29 | PC.NURSE ---
PER DR. [facility] CONTACTED FOR NEW CONSULT AT [phone] AT FIRST SPOKE WITH [facility] DISPATCH[facility] SUPERVISOR, THEN WITH [facility] AT [phone]. DEMOGRAPHIC INFORMATION GIVEN TO THEM REQUESTED. SCARLET STATES SHE WILL HAVE SOMEONE CALL BACK SHORTLY.
[2023-06-25] VITALS (9 sets, daily range): BP systolic 105–135; BP diastolic 53–68; PULSE 88–111; RESP 18–33; TEMP 36.6; O2SAT 92–100
--- NOTE | 2023-06-25 00:18 | PC.NURSE ---
Pt moved into hospital bed for comfort.
--- NOTE | 2023-06-25 00:28 | PC.NURSE ---
[facility] returned call and states will send nurse out to see patient
--- NOTE | 2023-06-25 00:50 | PC.NURSE ---
JAM COHEN RN ARRIVED TO ASSESS PT AND FAMILY SITUATION.
[2023-06-25] MEDS: SODIUM CHLORIDE 0.9% IV 250 ML 30 ML IV CONT (01:15)
--- NOTE | 2023-06-25 01:38 | PC.NURSE ---
reports she would like to take pt home instead of use an ambulance.
== END 2023-06-25 02:00 | disposition hospice, home (50) ==
PROVIDERS: Physician Assistant; Emergency Provider Nurse Practitioner; PCP Family Medicine
DX: I71.43 Infrarenal abdominal aortic aneurysm, without rupture (principal); I13.0 Hypertensive heart and chronic kidney disease with heart failure and stage 1 through stage 4 chronic kidney disease, or unspecified chronic kidney disease; N18.30 Chronic kidney disease, stage 3 unspecified; I50.22 Chronic systolic (congestive) heart failure; D64.9 Anemia, unspecified; R41.0 Disorientation, unspecified; R93.5 Abnormal findings on diagnostic imaging of other abdominal regions, including retroperitoneum; S72.115A Nondisplaced fracture of greater trochanter of left femur, initial encounter for closed fracture; Z20.822 Contact with and (suspected) exposure to COVID-19; I48.20 Chronic atrial fibrillation, unspecified; E78.5 Hyperlipidemia, unspecified; I25.10 Atherosclerotic heart disease of native coronary artery without angina pectoris; G47.33 Obstructive sleep apnea (adult) (pediatric); I87.2 Venous insufficiency (chronic) (peripheral); Z79.899 Other long term (current) drug therapy; Z95.5 Presence of coronary angioplasty implant and graft; Z86.010 Personal history of colon polyps; Z87.891 Personal history of nicotine dependence; I51.7 Cardiomegaly; J43.9 Emphysema, unspecified; I48.91 Unspecified atrial fibrillation; R90.82 White matter disease, unspecified; R18.8 Other ascites; R94.31 Abnormal electrocardiogram [ECG] [EKG]; Z79.01 Long term (current) use of anticoagulants; X58.XXXA Exposure to other specified factors, initial encounter
CPT/HCPCS: 36415; 36430; 70450; 71045; 74174; 80053; 80307; 81003; 83735; 83880; 84443; 84484; 85025; 85610; 85730; 86850; 86900; 86901; 86923; 87636; 93005; 94640; 96361; 96365; 96366; 96375; 99284; 99285; J1940; J3480; J7050; P9016; Q9967